=== PATIENT | female | born 1945 | race Caucasian/White ===

== ENCOUNTER 2020-09-20 15:08 | Inpatient (IN) | payer MEDICARE, OTHER, SELFPAY ==
[2020-09-20] VITALS (22 sets, daily range): BP systolic 140–207; BP diastolic 54–89; PULSE 68–79; RESP 16–20; TEMP 36.7–37.1; O2SAT 90–99; BMI 29.5
--- NOTE | 2020-09-20 15:24 | DI.RAD.S_ITS ---
PROCEDURE: XR KNEE RT 3V INDICATIONS: injury TECHNIQUE: Three views of the knee were acquired. COMPARISON: [facility], , XR KNEE 2V RT, 07/22/2005, 12:23. FINDINGS: Bones: Projecting skull changes are seen from a right total knee arthroplasty. There is mild cortical irregularity and angulation at the lateral aspect of the distal femoral metaphysis that is suspicious for a mildly angulated fracture. Mild valgus angulation is noted at the knee. Soft tissues: Fat-fluid levels are noted on lateral view, suspicious for a lipohemarthrosis. No suspicious soft tissue calcifications. IMPRESSION: 1. Suspected mildly angulated fracture at the lateral aspect of the distal femoral metaphysis. Findings may be further evaluated with CT if clinically indicated. 2. Moderate lipohemarthrosis. Dictated by: Long Guan M.D. on 09/20/2020 at 15:00 Approved by: Long Guan M.D. on 09/20/2020 at 15:04
--- NOTE | 2020-09-20 16:56 | DI.CT.S_ITS ---
PROCEDURE: CT LE RT WO CON INDICATIONS: Rt knee trauma. S/P knee surgery.Possible FX. TECHNIQUE: Noncontrast 1-1.5 mm axial sections acquired from the mid-patella to the proximal tibia, with coronal and sagittal reformats. COMPARISON: [facility], CR, XR KNEE RT 3V, 09/20/2020, 15:37. FINDINGS: Image quality: Excellent. Bones: Postsurgical changes are seen from right total knee arthroplasty with surrounding metallic streak artifact that mildly compromises evaluation of adjacent structures. An impacted and mildly the angulated fracture is seen at the lateral femoral metaphysis. There is up to 7 mm impaction at the lateral femoral metaphyseal cortex. The fracture is not seen exiting the medial femur. Mild valgus angulation is seen. The fractured extends to the level of the metallic lateral femoral condyle arthroplasty component. The right proximal tibia appears to be intact. The included fibula is intact. Soft tissues: A moderate joint effusion is seen with fat-fluid and fluid-fluid levels, compatible with a lipohemarthrosis. There is mild fatty infiltration of the musculature surrounding the knee. The ligaments and tendons are not well evaluated with CT. IMPRESSION: 1. Mildly impacted fracture at the lateral aspect of the distal femoral metaphysis with mild valgus angulation. 2. Status post right total knee arthroplasty. 3. Moderate lipohemarthrosis. Dictated by: Long Guan M.D. on 09/20/2020 at 16:30 Approved by: Long Guan M.D. on 09/20/2020 at 16:38
[2020-09-20] MEDS: ACETAMINOPHEN 325 MG TABLET 650 MG PO (17:50)
--- NOTE | 2020-09-20 18:19 | ED_ITS ---
HPI - Extremity Injury (Lower) <Raciel Lawler MD - Last Filed: 11/05/20 20:18> General Chief Complaint: Extremity Injury, Lower Stated Complaint: Fall Time Seen by Provider: 09/20/20 16:54 Source: patient and EMS Mode of arrival: EMS Limitations: no limitations History of Present Illness HPI Narrative: The patient tripped over a step at her house earlier, she fell onto her right knee. She has a past history of right DEIRDRE and a right TKA. He has significant pain in the right knee, she is unable stand. There is no open wound, no bleeding. She has no obvious deformity. She has no numbness to the right leg. She was too much to stand. She landed on the, there was no other trauma in the fall. She denies recent illness. Related Data Allergies Allergy/AdvReac Type Severity Reaction Status Date / Time No Known Drug Allergies Allergy Verified 09/22/20 08:25 Review of Systems <Raciel Lawler MD - Last Filed: 11/05/20 20:18> Constitutional Constitutional: Denies fever(s), Denies headache(s) and Denies weakness Comments: No recent illness ENT Ears, Nose, Mouth, and Throat: Denies headache(s) Comments: No complaints Cardiovascular Cardiovascular: Denies chest pain and Denies dyspnea Respiratory Respiratory: Denies cough and Denies dyspnea Gastrointestinal Gastrointestinal: Denies abdominal pain Musculoskeletal Musculoskeletal: Denies numbness Comments: Initially located to the right knee exclusively see HPI. Integumentary/Breasts Skin/Breast: Denies erythema, Denies rash and Denies wounds Neurologic Neurologic: Denies headache(s), Denies numbness and Denies weakness Patient History <Raciel Lawler MD - Last Filed: 11/05/20 20:18> Medical History Aortic stenosis Hypertension Rheumatoid arthritis Surgical History History of cholecystectomy History of foot surgery History of knee replacement History of right hip replacement History of transcatheter aortic valve replacement (TAVR) Family History Father No significant medical problems Mother Hypertension Diverticulosis Social History household members: spouse Smoking Status: Former smoker alcohol intake: current Smoking Status: Former smoker alcohol intake frequency: other Substance Use Type: does not use Exam <Raciel Lawler MD - Last Filed: 11/05/20 20:18> Initial Vital Signs Initial Vital Signs: Vital Signs Temperature 98.1 F 09/20/20 15:24 Pulse Rate 70 09/20/20 15:24 Respiratory Rate 16 09/20/20 15:24 Blood Pressure 171/74 H 09/20/20 15:24 Pulse Oximetry 98 09/20/20 15:24 Const General: cooperative and well developed Nutritional Appearance: well nourished HENMT Head: normocephalic and atraumatic Resp Auscultation: clear to auscultation bilaterally Cardio Rate: regular rate Rhythm: regular rhythm Heart Sounds: S1 normal Back/Spine/Pelvis Back: No back tenderness Skin General: no rashes or lesions noted Neuro General: patient alert and patient oriented x3 Speech: speech normal Motor: muscle tone normal throughout Sensory Exam: no sensory deficits noted Extrem Other: Right hip is nontender. The right knee is tender with edema, no abrasions, mild ecchymosis. She has limited range of motion due to pain. The right calf, ankle and foot are nontender. The right dorsalis pedis pulses normal. Psych Mental Status: mental status grossly normal <Shay Maurice DO - Last Filed: 09/20/20 22:17> Initial Vital Signs Initial Vital Signs: Vital Signs Temperature 98.1 F 09/20/20 15:24 Pulse Rate 70 09/20/20 15:24 Respiratory Rate 16 09/20/20 15:24 Blood Pressure 171/74 H 09/20/20 15:24 Pulse Oximetry 98 09/20/20 15:24 Procedures <Raciel Lawler MD - Last Filed: 11/05/20 20:18> Orthopedic Splinting/Casting Injury #1: Side: right Lower Extremity Injury Location: knee Lower Extremity Immobilizer: knee immobilizer Other Orthopedic Equipment: crutches Post splinting neuro exam: intact Post splinting vascular exam: intact Placed by: Nursing Course <Raciel Lawler MD - Last Filed: 11/05/20 20:18> Course Course Narrative: The patient has a right knee periprosthetic fracture. There is no significant displacement/malalignment. She is placed in a knee immobilizer. Orders Ordered: Discontinued Medications Acetaminophen (Acetaminophen 325 Mg Tablet) 650 mg PO NOW ONE Stop: 09/20/20 17:48 Last Admin: 09/20/20 17:50 Dose: 650 mg Documented by: NI Acetaminophen (Acetaminophen 325 Mg Tablet) 975 mg PO Q12H PRN PRN Reason: Pain, Mild (1-3) Acetaminophen (Acetaminophen 325 Mg Tablet) 975 mg PO Q6HR [facility] Last Admin: 09/21/20 23:35 Dose: 975 mg Documented by: Admin: 09/21/20 18:03 Dose: 975 mg Documented by: Admin: 09/21/20 13:07 Dose: 975 mg Documented by: BOBBY Acetaminophen (Acetaminophen 325 Mg Tablet) 975 mg PO Q8H [facility] Admin: 09/22/20 07:21 Dose: Not Given Documented by: Admin: 09/22/20 01:20 Dose: Not Given Documented by: JASEN Acetaminophen (Acetaminophen 325 Mg Tablet) 975 mg PO TID [facility] Last Admin: 09/24/20 08:39 Dose: 975 mg Documented by: Admin: 09/23/20 21:12 Dose: 975 mg Documented by: Admin: 09/23/20 14:32 Dose: 975 mg Documented by: Admin: 09/23/20 08:45 Dose: 975 mg Documented by: Admin: 09/22/20 20:53 Dose: 975 mg Documented by: Admin: 09/22/20 15:51 Dose: 975 mg Documented by: DEANNA Hydrocodone Bitart/Acetaminophen (Hydrocodone/Acet 5/325 Tablet) 1 tab PO Q4HR PRN PRN Reason: Pain, Mild (1-3) Aspirin (Aspirin Ec 81 Mg Tablet) 81 mg PO BID [facility] Last Admin: 09/24/20 08:38 Dose: 81 mg Documented by: Admin: 09/23/20 21:12 Dose: 81 mg Documented by: Admin: 09/23/20 08:45 Dose: 81 mg Documented by: Admin: 09/22/20 20:53 Dose: 81 mg Documented by: LAM Benzocaine (Benzocaine/Menthol 1 Ashley Pkt) 1 each PO PRN PRN PRN Reason: Sore Throat Bisacodyl (Bisacodyl 10 Mg Supp) 10 mg SD PRN PRN PRN Reason: Constipation Carvedilol (Carvedilol 12.5 Mg Tablet) 12.5 mg PO BIDWM [facility] Last Admin: 09/21/20 23:33 Dose: Not Given Documented by: Admin: 09/21/20 08:26 Dose: 12.5 mg Documented by: BOBBY Carvedilol (Carvedilol 12.5 Mg Tablet) 12.5 mg PO BID [facility] Last Admin: 09/23/20 03:59 Dose: Not Given Documented by: ROGELIO Carvedilol (Carvedilol 3.125 Mg Tablet) 6.25 mg PO BID [facility] Last Admin: 09/24/20 08:38 Dose: 6.25 mg Documented by: Admin: 09/23/20 21:12 Dose: 6.25 mg Documented by: Admin: 09/23/20 08:45 Dose: 6.25 mg Documented by: Admin: 09/22/20 20:54 Dose: 6.25 mg Documented by: LAM Docusate Sodium (Docusate 100 Mg Capsule) 100 mg PO BID [facility] Last Admin: 09/24/20 08:34 Dose: Not Given Documented by: Admin: 09/23/20 21:22 Dose: Not Given Documented by: Admin: 09/23/20 08:45 Dose: 100 mg Documented by: Admin: 09/22/20 20:57 Dose: Not Given Documented by: LAM Enoxaparin Sodium (Enoxaparin 40 Mg/0.4 Ml Syringe) 40 mg SUBCUT DAILY [facility] Last Admin: 09/23/20 03:59 Dose: Not Given Documented by: Admin: 09/21/20 08:27 Dose: 40 mg Documented by: BOBBY Fentanyl (Fentanyl 100 Mcg/2 Ml Inj) 0 mcg IV Q5M PRN PRN Reason: Pain, Moderate (4-6) Hydrochlorothiazide (Hydrochlorothiazide 25 Mg Tablet) 25 mg PO DAILY [facility] Sodium Chloride (Normal Saline 0.9%) 1,000 mls @ 100 mls/hr IV CONT [facility] Stop: 09/22/20 03:59 Last Admin: 09/21/20 18:04 Dose: 100 mls/hr Documented by: LAM Sodium Chloride (Normal Saline 0.9%) 1,000 mls @ 100 mls/hr IV CONT [facility] Last Admin: 09/22/20 04:27 Dose: 100 mls/hr Documented by: Admin: 09/21/20 22:36 Dose: Not Given Documented by: DEANNA Ceftriaxone Sodium/Dextrose (Rocephin) 1 gm in 50 mls @ 100 mls/hr IV Q24H [facility] Stop: 09/26/20 22:29 Last Infusion: 09/21/20 23:21 Dose: 100 mls/hr Documented by: Admin: 09/21/20 22:38 Dose: 100 mls/hr Documented by: DEANNA Potassium Chloride 40 meq/ (Sodium Chloride) 520 mls @ 130 mls/hr IV NOW ONE Stop: 09/22/20 10:54 Last Admin: 09/22/20 07:18 Dose: 130 mls/hr Documented by: VARINDER Cosigned by: BOBBY Magnesium Sulfate (Magnesium Sulfate) 2 gm in 50 mls @ 25 mls/hr IV NOW ONE Stop: 09/22/20 09:20 Last Admin: 09/23/20 03:58 Dose: Not Given Documented by: ROGELIO Lactated Ringer's (Lactated Ringers) 1,000 mls @ 42 mls/hr IV CONT [facility] Last Admin: 09/23/20 03:58 Dose: Not Given Documented by: ROGELIO Magnesium Sulfate (Magnesium Sulfate) 2 gm in 50 mls @ 25 mls/hr IV NOW ONE Stop: 09/22/20 14:14 Last Admin: 09/22/20 13:49 Dose: 25 mls/hr Documented by: BOBBY Cosigned by: SONIYA Ceftriaxone Sodium/Dextrose (Rocephin) 1 gm in 50 mls @ 100 mls/hr IV Q24H [facility] Stop: 09/24/20 17:59 Last Admin: 09/23/20 18:23 Dose: 100 mls/hr Documented by: Infusion: 09/22/20 19:58 Dose: 100 mls/hr Documented by: Admin: 09/22/20 17:34 Dose: 100 mls/hr Documented by: LAM Magnesium Hydroxide (Magnesium Hydroxide 30 Ml Udc) 30 ml PO BEDTIME [facility] Last Admin: 09/23/20 21:22 Dose: Not Given Documented by: Admin: 09/22/20 20:58 Dose: Not Given Documented by: LAM Morphine Sulfate (Morphine 4 Mg/Ml Inj) 4 mg SUBCUT NOW ONE Stop: 09/20/20 18:04 Last Admin: 09/20/20 18:21 Dose: 4 mg Documented by: NI Morphine Sulfate (Morphine 2 Mg/Ml Inj) 2 mg IV Q4HR PRN PRN Reason: Pain, Severe (7-10) Last Admin: 09/22/20 10:47 Dose: 2 mg Documented by: Admin: 09/22/20 05:07 Dose: 2 mg Documented by: Admin: 09/21/20 08:26 Dose: 2 mg Documented by: Admin: 09/21/20 03:40 Dose: 2 mg Documented by: JASEN Naloxone HCl (Naloxone 0.4 Mg/Ml Vial) 0.2 mg IV Q2MIN PRN PRN Reason: Opiate Reversal Naloxone HCl (Naloxone 0.4 Mg/Ml Vial) 0.2 mg IV Q2MIN PRN PRN Reason: Opiate Reversal Ondansetron HCl (Ondansetron 4 Mg/2 Ml Inj) 4 mg IV NOW PRN PRN Reason: Nausea And Vomiting Ondansetron HCl (Ondansetron 4 Mg Odt) 4 mg PO Q4HR PRN PRN Reason: Nausea And Vomiting Ondansetron HCl (Ondansetron 4 Mg/2 Ml Inj) 4 mg IV Q4HR PRN PRN Reason: Nausea And Vomiting Oxycodone HCl (Oxycodone Ir 5 Mg Tablet) 5 mg PO Q4HR PRN PRN Reason: Pain, Moderate (4-6) Oxycodone/Acetaminophen (Oxycodone/Acetaminophen 5/325 Tablet) 1 tab PO PACUNOW PRN PRN Reason: Mild or Moderate Pain Phenazopyridine HCl (Phenazopyridine 100 Mg Tablet) 100 mg PO TID [facility] Last Admin: 09/24/20 08:38 Dose: 100 mg Documented by: Admin: 09/23/20 21:12 Dose: 100 mg Documented by: Admin: 09/23/20 14:37 Dose: 100 mg Documented by: Admin: 09/23/20 08:46 Dose: 100 mg Documented by: Admin: 09/22/20 21:34 Dose: 100 mg Documented by: Admin: 09/22/20 17:34 Dose: 100 mg Documented by: LAM Polyethylene Glycol (Polyethylene Glycol 3350 17 Gm Powd.Pack) 17 gm PO DAILY [facility] Last Admin: 09/24/20 08:35 Dose: Not Given Documented by: Admin: 09/23/20 08:46 Dose: 17 gm Documented by: BOBBY Potassium Chloride (Potassium Chloride 20 Meq Tab) 40 meq PO NOW ONE Stop: 09/20/20 23:39 Last Admin: 09/21/20 00:01 Dose: 40 meq Documented by: JASEN Sodium Chloride (Sodium Chloride 0.9% Flush) 10 ml IV BID [facility] Last Admin: 09/23/20 03:59 Dose: Not Given Documented by: Admin: 09/21/20 21:51 Dose: Not Given Documented by: Admin: 09/21/20 10:08 Dose: 10 ml Documented by: BOBBY Sodium Chloride (Sodium Chloride 0.9% Flush) 10 ml IV PRN PRN PRN Reason: Flush Sodium Chloride (Sodium Chloride 0.9% Flush) 10 ml IV PRN PRN PRN Reason: Flush Last Admin: 09/23/20 18:24 Dose: 10 ml Documented by: Admin: 09/22/20 17:38 Dose: 10 ml Documented by: Admin: 09/22/20 16:35 Dose: 10 ml Documented by: LAM Sodium Chloride (Sodium Chloride 0.9% Flush) 10 ml IV BID [facility] Last Admin: 09/24/20 08:41 Dose: 10 ml Documented by: Admin: 09/23/20 21:26 Dose: 10 ml Documented by: Admin: 09/23/20 08:46 Dose: 10 ml Documented by: Admin: 09/22/20 21:35 Dose: 10 ml Documented by: DEANNA Telmisartan (Telmisartan 40 Mg Tablet) 80 mg PO DAILY [facility] Last Admin: 09/23/20 03:59 Dose: Not Given Documented by: Admin: 09/21/20 08:26 Dose: 80 mg Documented by: BOBBY Telmisartan (Telmisartan 40 Mg Tablet) 80 mg PO DAILY [facility] Last Admin: 09/24/20 08:38 Dose: 80 mg Documented by: Admin: 09/23/20 08:45 Dose: 80 mg Documented by: BOBBY Tramadol HCl (Tramadol 50 Mg Tablet) 50 mg PO Q6H PRN PRN Reason: Pain, Mild (1-3) Last Admin: 09/21/20 09:32 Dose: 50 mg Documented by: BOBBY Tramadol HCl (Tramadol 50 Mg Tablet) 50 mg PO QID PRN PRN Reason: Pain, Moderate (4-6) Tramadol HCl (Tramadol 50 Mg Tablet) 100 mg PO Q6H PRN PRN Reason: Pain, Moderate (4-6) Vital Signs Vital signs: Vital Signs - 8 hr 09/20/20 15:24 09/20/20 15:59 09/20/20 16:00 Temperature 98.1 F Pulse Rate 70 72 71 Respiratory Rate 16 18 Blood Pressure 171/74 H 175/75 H Pulse Oximetry 98 97 97 09/20/20 16:30 09/20/20 17:00 09/20/20 17:20 Temperature Pulse Rate 78 69 71 Respiratory Rate Blood Pressure 174/72 H Pulse Oximetry 94 98 95 09/20/20 17:30 09/20/20 18:00 09/20/20 18:01 Temperature Pulse Rate 69 68 69 Respiratory Rate Blood Pressure 156/71 H 159/67 H Pulse Oximetry 98 99 99 09/20/20 18:30 09/20/20 18:47 09/20/20 18:51 Temperature Pulse Rate 74 79 73 Respiratory Rate 16 Blood Pressure 175/89 H 207/79 H Pulse Oximetry 97 92 98 09/20/20 18:52 Temperature Pulse Rate 74 Respiratory Rate Blood Pressure 188/77 H Pulse Oximetry 98 <Shay Maurice DO - Last Filed: 09/20/20 22:17> Orders Ordered: Discontinued Medications Acetaminophen (Acetaminophen 325 Mg Tablet) 650 mg PO NOW ONE Stop: 09/20/20 17:48 Last Admin: 09/20/20 17:50 Dose: 650 mg Documented by: NI Acetaminophen (Acetaminophen 325 Mg Tablet) 975 mg PO Q12H PRN PRN Reason: Pain, Mild (1-3) Acetaminophen (Acetaminophen 325 Mg Tablet) 975 mg PO Q6HR [facility] Last Admin: 09/21/20 23:35 Dose: 975 mg Documented by: Admin: 09/21/20 18:03 Dose: 975 mg Documented by: Admin: 09/21/20 13:07 Dose: 975 mg Documented by: BOBBY Acetaminophen (Acetaminophen 325 Mg Tablet) 975 mg PO Q8H [facility] Last Admin: 09/22/20 07:21 Dose: Not Given Documented by: Admin: 09/22/20 01:20 Dose: Not Given Documented by: JASEN Acetaminophen (Acetaminophen 325 Mg Tablet) 975 mg PO TID [facility] Last Admin: 09/24/20 08:39 Dose: 975 mg Documented by: Admin: 09/23/20 21:12 Dose: 975 mg Documented by: Admin: 09/23/20 14:32 Dose: 975 mg Documented by: Admin: 09/23/20 08:45 Dose: 975 mg Documented by: Admin: 09/22/20 20:53 Dose: 975 mg Documented by: Admin: 09/22/20 15:51 Dose: 975 mg Documented by: DEANNA Hydrocodone Bitart/Acetaminophen (Hydrocodone/Acet 5/325 Tablet) 1 tab PO Q4HR PRN PRN Reason: Pain, Mild (1-3) Aspirin (Aspirin Ec 81 Mg Tablet) 81 mg PO BID [facility] Last Admin: 09/24/20 08:38 Dose: 81 mg Documented by: Admin: 09/23/20 21:12 Dose: 81 mg Documented by: Admin: 09/23/20 08:45 Dose: 81 mg Documented by: Admin: 09/22/20 20:53 Dose: 81 mg Documented by: LAM Benzocaine (Benzocaine/Menthol 1 Ashley Pkt) 1 each PO PRN PRN PRN Reason: Sore Throat Bisacodyl (Bisacodyl 10 Mg Supp) 10 mg SD PRN PRN PRN Reason: Constipation Carvedilol (Carvedilol 12.5 Mg Tablet) 12.5 mg PO BIDWM [facility] Last Admin: 09/21/20 23:33 Dose: Not Given Documented by: Admin: 09/21/20 08:26 Dose: 12.5 mg Documented by: BOBBY Carvedilol (Carvedilol 12.5 Mg Tablet) 12.5 mg PO BID [facility] Last Admin: 09/23/20 03:59 Dose: Not Given Documented by: ROGELIO Carvedilol (Carvedilol 3.125 Mg Tablet) 6.25 mg PO BID [facility] Last Admin: 09/24/20 08:38 Dose: 6.25 mg Documented by: Admin: 09/23/20 21:12 Dose: 6.25 mg Documented by: Admin: 09/23/20 08:45 Dose: 6.25 mg Documented by: Admin: 09/22/20 20:54 Dose: 6.25 mg Documented by: LAM Docusate Sodium (Docusate 100 Mg Capsule) 100 mg PO BID [facility] Last Admin: 09/24/20 08:34 Dose: Not Given Documented by: Admin: 09/23/20 21:22 Dose: Not Given Documented by: Admin: 09/23/20 08:45 Dose: 100 mg Documented by: Admin: 09/22/20 20:57 Dose: Not Given Documented by: LAM Enoxaparin Sodium (Enoxaparin 40 Mg/0.4 Ml Syringe) 40 mg SUBCUT DAILY [facility] Last Admin: 09/23/20 03:59 Dose: Not Given Documented by: Admin: 09/21/20 08:27 Dose: 40 mg Documented by: BOBBY Fentanyl (Fentanyl 100 Mcg/2 Ml Inj) 0 mcg IV Q5M PRN PRN Reason: Pain, Moderate (4-6) Hydrochlorothiazide (Hydrochlorothiazide 25 Mg Tablet) 25 mg PO DAILY [facility] Sodium Chloride (Normal Saline 0.9%) 1,000 mls @ 100 mls/hr IV CONT [facility] Stop: 09/22/20 03:59 Last Admin: 09/21/20 18:04 Dose: 100 mls/hr Documented by: LAM Sodium Chloride (Normal Saline 0.9%) 1,000 mls @ 100 mls/hr IV CONT [facility] Last Admin: 09/22/20 04:27 Dose: 100 mls/hr Documented by: Admin: 09/21/20 22:36 Dose: Not Given Documented by: DEANNA Ceftriaxone Sodium/Dextrose (Rocephin) 1 gm in 50 mls @ 100 mls/hr IV Q24H [facility] Stop: 09/26/20 22:29 Last Infusion: 09/21/20 23:21 Dose: 100 mls/hr Documented by: Admin: 09/21/20 22:38 Dose: 100 mls/hr Documented by: DEANNA Potassium Chloride 40 meq/ (Sodium Chloride) 520 mls @ 130 mls/hr IV NOW ONE Stop: 09/22/20 10:54 Last Admin: 09/22/20 07:18 Dose: 130 mls/hr Documented by: VARINDER Cosigned by: BOBBY Magnesium Sulfate (Magnesium Sulfate) 2 gm in 50 mls @ 25 mls/hr IV NOW ONE Stop: 09/22/20 09:20 Last Admin: 09/23/20 03:58 Dose: Not Given Documented by: ROGELIO Lactated Ringer's (Lactated Ringers) 1,000 mls @ 42 mls/hr IV CONT [facility] Last Admin: 09/23/20 03:58 Dose: Not Given Documented by: ROGELIO Magnesium Sulfate (Magnesium Sulfate) 2 gm in 50 mls @ 25 mls/hr IV NOW ONE Stop: 09/22/20 14:14 Last Admin: 09/22/20 13:49 Dose: 25 mls/hr Documented by: BOBBY Cosigned by: SONIYA Ceftriaxone Sodium/Dextrose (Rocephin) 1 gm in 50 mls @ 100 mls/hr IV Q24H [facility] Stop: 09/24/20 17:59 Last Admin: 09/23/20 18:23 Dose: 100 mls/hr Documented by: Infusion: 09/22/20 19:58 Dose: 100 mls/hr Documented by: Admin: 09/22/20 17:34 Dose: 100 mls/hr Documented by: LAM Magnesium Hydroxide (Magnesium Hydroxide 30 Ml Udc) 30 ml PO BEDTIME [facility] Last Admin: 09/23/20 21:22 Dose: Not Given Documented by: Admin: 09/22/20 20:58 Dose: Not Given Documented by: LAM Morphine Sulfate (Morphine 4 Mg/Ml Inj) 4 mg SUBCUT NOW ONE Stop: 09/20/20 18:04 Last Admin: 09/20/20 18:21 Dose: 4 mg Documented by: NI Morphine Sulfate (Morphine 2 Mg/Ml Inj) 2 mg IV Q4HR PRN PRN Reason: Pain, Severe (7-10) Last Admin: 09/22/20 10:47 Dose: 2 mg Documented by: Admin: 09/22/20 05:07 Dose: 2 mg Documented by: Admin: 09/21/20 08:26 Dose: 2 mg Documented by: Admin: 09/21/20 03:40 Dose: 2 mg Documented by: JASEN Naloxone HCl (Naloxone 0.4 Mg/Ml Vial) 0.2 mg IV Q2MIN PRN PRN Reason: Opiate Reversal Naloxone HCl (Naloxone 0.4 Mg/Ml Vial) 0.2 mg IV Q2MIN PRN PRN Reason: Opiate Reversal Ondansetron HCl (Ondansetron 4 Mg/2 Ml Inj) 4 mg IV NOW PRN PRN Reason: Nausea And Vomiting Ondansetron HCl (Ondansetron 4 Mg Odt) 4 mg PO Q4HR PRN PRN Reason: Nausea And Vomiting Ondansetron HCl (Ondansetron 4 Mg/2 Ml Inj) 4 mg IV Q4HR PRN PRN Reason: Nausea And Vomiting Oxycodone HCl (Oxycodone Ir 5 Mg Tablet) 5 mg PO Q4HR PRN PRN Reason: Pain, Moderate (4-6) Oxycodone/Acetaminophen (Oxycodone/Acetaminophen 5/325 Tablet) 1 tab PO PACUNOW PRN PRN Reason: Mild or Moderate Pain Phenazopyridine HCl (Phenazopyridine 100 Mg Tablet) 100 mg PO TID [facility] Last Admin: 09/24/20 08:38 Dose: 100 mg Documented by: Admin: 09/23/20 21:12 Dose: 100 mg Documented by: Admin: 09/23/20 14:37 Dose: 100 mg Documented by: Admin: 09/23/20 08:46 Dose: 100 mg Documented by: Admin: 09/22/20 21:34 Dose: 100 mg Documented by: Admin: 09/22/20 17:34 Dose: 100 mg Documented by: LAM Polyethylene Glycol (Polyethylene Glycol 3350 17 Gm Powd.Pack) 17 gm PO DAILY [facility] Last Admin: 09/24/20 08:35 Dose: Not Given Documented by: Admin: 09/23/20 08:46 Dose: 17 gm Documented by: BOBBY Potassium Chloride (Potassium Chloride 20 Meq Tab) 40 meq PO NOW ONE Stop: 09/20/20 23:39 Last Admin: 09/21/20 00:01 Dose: 40 meq Documented by: JASEN Sodium Chloride (Sodium Chloride 0.9% Flush) 10 ml IV BID [facility] Last Admin: 09/23/20 03:59 Dose: Not Given Documented by: Admin: 09/21/20 21:51 Dose: Not Given Documented by: Admin: 09/21/20 10:08 Dose: 10 ml Documented by: BOBBY Sodium Chloride (Sodium Chloride 0.9% Flush) 10 ml IV PRN PRN PRN Reason: Flush Sodium Chloride (Sodium Chloride 0.9% Flush) 10 ml IV PRN PRN PRN Reason: Flush Last Admin: 09/23/20 18:24 Dose: 10 ml Documented by: Admin: 09/22/20 17:38 Dose: 10 ml Documented by: Admin: 09/22/20 16:35 Dose: 10 ml Documented by: LAM Sodium Chloride (Sodium Chloride 0.9% Flush) 10 ml IV BID [facility] Last Admin: 09/24/20 08:41 Dose: 10 ml Documented by: Admin: 09/23/20 21:26 Dose: 10 ml Documented by: Admin: 09/23/20 08:46 Dose: 10 ml Documented by: Admin: 09/22/20 21:35 Dose: 10 ml Documented by: DEANNA Telmisartan (Telmisartan 40 Mg Tablet) 80 mg PO DAILY [facility] Last Admin: 09/23/20 03:59 Dose: Not Given Documented by: Admin: 09/21/20 08:26 Dose: 80 mg Documented by: BOBBY Telmisartan (Telmisartan 40 Mg Tablet) 80 mg PO DAILY [facility] Last Admin: 09/24/20 08:38 Dose: 80 mg Documented by: Admin: 09/23/20 08:45 Dose: 80 mg Documented by: BOBBY Tramadol HCl (Tramadol 50 Mg Tablet) 50 mg PO Q6H PRN PRN Reason: Pain, Mild (1-3) Last Admin: 09/21/20 09:32 Dose: 50 mg Documented by: BOBBY Tramadol HCl (Tramadol 50 Mg Tablet) 50 mg PO QID PRN PRN Reason: Pain, Moderate (4-6) Tramadol HCl (Tramadol 50 Mg Tablet) 100 mg PO Q6H PRN PRN Reason: Pain, Moderate (4-6) Vital Signs Vital signs: Vital Signs - 8 hr 09/20/20 15:24 09/20/20 15:59 09/20/20 16:00 Temperature 98.1 F Pulse Rate 70 72 71 Respiratory Rate 16 18 Blood Pressure 171/74 H 175/75 H Pulse Oximetry 98 97 97 09/20/20 16:30 09/20/20 17:00 09/20/20 17:20 Temperature Pulse Rate 78 69 71 Respiratory Rate Blood Pressure 174/72 H Pulse Oximetry 94 98 95 09/20/20 17:30 09/20/20 18:00 09/20/20 18:01 Temperature Pulse Rate 69 68 69 Respiratory Rate Blood Pressure 156/71 H 159/67 H Pulse Oximetry 98 99 99 09/20/20 18:30 09/20/20 18:47 09/20/20 18:51 Temperature Pulse Rate 74 79 73 Respiratory Rate 16 Blood Pressure 175/89 H 207/79 H Pulse Oximetry 97 92 98 09/20/20 18:52 Temperature Pulse Rate 74 Respiratory Rate Blood Pressure 188/77 H Pulse Oximetry 98 MDM - Extremity Injury (Lower) <Raciel Lawler MD - Last Filed: 11/05/20 20:18> Lab Data Result diagrams: 09/23/20 05:45 09/24/20 05:35 Imaging Data Right knee x-ray: Radiologist's Impression: Periprosthetic fracture. Right knee CT:: Radiologist's Impression: 218 Raciel Lawler MD Find Patient Imaging - Tessa Segal 75 F 1945 ACTIVITY DATE EXAM STATUS AUTHOR 09/20/20 16:56 Signed Long Guan 09/20/20 15:24 Signed Long Guan [address] [id number] Scan ReportSigned Patient: Tessa Segal JMR#: [id number]: 1945cct:[id number]/Sex: 75 / FDate of Service: 09/20/20Loc: EDAccession Number: [id number] Procedure: CT LE RT wo con Ordering Provider: Raciel Lawler MD PROCEDURE: CT LE RT WO CON INDICATIONS: Rt knee trauma. S/P knee surgery.Possible FX. TECHNIQUE: Noncontrast 1-1.5 mm axial sections acquired from the mid-patella to the proximal tibia, with coronal and sagittal reformats. COMPARISON: [facility], CR, XR KNEE RT 3V, 09/20/2020, 15:37. FINDINGS: Image quality: Excellent. Bones: Postsurgical changes are seen from right total knee arthroplasty with surrounding metallic streak artifact that mildly compromises evaluation of adjacent structures. An impacted and mildly the angulated fracture is seen at the lateral femoral metaphysis. There is up to 7 mm impaction at the lateral femoral metaphyseal cortex. The fracture is not seen exiting the medial femur. Mild valgus angulation is seen. The fractured extends to the level of the metallic lateral femoral condyle arthroplasty component. The right proximal tibia appears to be intact. The included fibula is intact. Soft tissues: A moderate joint effusion is seen with fat-fluid and fluid-fluid levels, compatible with a lipohemarthrosis. There is mild fatty infiltration of the musculature surrounding the knee. The ligaments and tendons are not well evaluated with CT. IMPRESSION: 1. Mildly impacted fracture at the lateral aspect of the distal femoral metaphysis with mild valgus angulation. 2. Status post right total knee arthroplasty. 3. Moderate lipohemarthrosis. Dictated by: Long Guan M.D. on 09/20/2020 at 16:30 Approved by: Long Guan M.D. on 09/20/2020 at 16:38 <Shay Maurice DO - Last Filed: 09/20/20 22:17> [facility] Narrative Medical decision making narrative: Dr maurice: Received turned over from day provider. Reviewed patient's history and physical. Her knee x-ray his under a another 1st name but has the same last name. Her CT scan of her knees under her correct 1st name. This will be adjusted by Radiology administration tomorrow. I did discuss the case with Dr. Rod on-call for Orthopedics who recommended placing the placement in a splint making her nonweightbearing every in her call the office for follow-up. Initially be attempted a knee immobilizer however this was unsuccessful secondary to the patient's discomfort was straightening her knee. We then placed her in a posterior splint however she was unable to stand using the crutches have bedside. She does have other issues with arthritis. Patient is unsafe to be discharged home. We do not have a wheelchair that she can be discharged with. She does have stairs in her home. She is unable to use a walker. Discussed the case with DAXA Wallace the night hospitalist who will admit for physical therapy and social work evaluation. Discharge Plan Departure Patient Disposition: Admitted as Observation Clinical Impression: Closed fracture of right knee region Admit Date/Time: 09/20/20 22:05 Admit Provider: Vargas Wallace
[2020-09-20] MEDS: MORPHINE 4 MG/ML INJ SUBCUT (18:21)
[2020-09-20 22:40] LABS: BUN Creatinine Ratio 18.8 (6-22); Blood Urea Nitrogen 15 mg/dL (7-17); Calcium 9.1 mg/dL (8.4-10.2); Carbon Dioxide 33 mmol/L (22-32); Chloride 101 mmol/L (98-107); Estimated Glomerular Filt Rate > 60.0 mL/min (>60); Glucose 117 mg/dL (80-110); HEMOLYSIS < 15 (0-50); Potassium 3.3 mmol/L (3.4-5.1); Sodium 133 mmol/L (137-145)
--- NOTE | 2020-09-20 22:48 | PC.NURSE ---
Tried to assist pt to stand and ambulate with crutches. pt was able to get to side of bed, but was not able to stand and ambulate with crutches.
--- NOTE | 2020-09-20 22:51 | PM.HP.1 ---
History of Present Illness History of Present Illness Date Patient Seen: 09/20/20 Time Patient Seen: 22:34 Chief complaint: Fall Narrative: Ms. Tessa Segal is a 75-year-old female with a past medical history significant for hypertension, aortic stenosis status post TAVR and rheumatoid arthritis who presents to the ER via EMS following a mechanical ground level fall and knee pain. Patient reports tripping on a step and landing on her right knee. She was nonambulatory following the fall and sustained no loss consciousness, no head neck or back injury. Patient has had previous bilateral total knee arthroplasty and right total hip arthroplasty. She reports impaired joint mobility in her hands and ankles related to advanced rheumatoid arthritis. The patient denies recent cold or flu symptoms and has had no known COVID-19 exposures. She denies chest pain or palpitations, shortness of breath cough or wheezing. She denies epigastric or abdominal pain and has no nausea or vomiting. She denies changes in bowel or bladder habits. Upon arrival to the ER the patient's temperature 98.1?, heart rate of 70, blood pressure 171/74, respirations 16 saturating 98% on room air. X-ray of the right knee finds suspected mildly angulated fracture at the lateral aspect of the distal femoral metaphysis, moderate lipohemarthrosis. CT of the right knee reveals mildly impacted fracture at the lateral aspect of the distal femoral metaphysis with mild valgus angulation, status post right total knee arthroplasty and moderate lipohemarthrosis. Dr. Rod, orthopedics, was called through the ED. Was felt though that this is a periprosthetic fracture emergent surgery is not indicated and recommended outpatient follow-up. The patient was found to be unable to support her weight on either crutches or a walker due to her advanced rheumatoid arthritis and nonweightbearing status. Her home environment includes steps at the entry in the patient is deemed unsafe to discharge to home environment due to her level of disability. The patient will be admitted as to the medicine service for periprosthetic fracture of the right knee, pain management and PT and OT evaluation. BMP is ordered finding a sodium of 133, potassium of 3.3, carbon dioxide 33 with a BUN of 15 and creatinine 0.80. Nonfasting glucose is 117. Patient History Medical History Aortic stenosis Hypertension Rheumatoid arthritis Surgical History History of cholecystectomy History of foot surgery History of knee replacement History of right hip replacement History of transcatheter aortic valve replacement (TAVR) Family & Social History Family History Father No significant medical problems Mother Hypertension Diverticulosis Safety & Behavioral: Feels Safe in Current Yes Environment Been Physically Hurt or No Threatened By a Person Tobacco & Substance use: Smoking Status Former smoker alcohol intake frequency other Substance Use Type does not use Meds Home Medications and Allergies Home Medications Medication Instructions Recorded Confirmed Type carvedilol [Coreg] 12.5 mg PO BID 09/20/20 09/20/20 History telmisartan-hydrochlorothiazid 1 tab PO DAILY 09/20/20 09/20/20 History [Micardis HCT] tramadol 50 mg PO Q6H PRN #20 tab 09/20/20 Rx Allergies Allergy/AdvReac Type Severity Reaction Status Date / Time No Known Drug Allergies Allergy Verified 09/20/20 15:32 Review of Systems Review of Systems ROS: Yes All systems reviewed with the patient and are negative except as otherwise documented Exam Vital Signs (past 8 hours): - 09/20/20 15:24 09/20/20 15:59 09/20/20 16:00 Temperature 98.1 F Pulse Rate 70 72 71 Respiratory Rate 16 18 Blood Pressure 171/74 H 175/75 H Pulse Oximetry 98 97 97 09/20/20 16:30 09/20/20 17:00 09/20/20 17:20 Temperature Pulse Rate 78 69 71 Respiratory Rate Blood Pressure 174/72 H Pulse Oximetry 94 98 95 09/20/20 17:30 09/20/20 18:00 09/20/20 18:01 Temperature Pulse Rate 69 68 69 Respiratory Rate Blood Pressure 156/71 H 159/67 H Pulse Oximetry 98 99 99 09/20/20 18:30 09/20/20 18:47 09/20/20 18:51 Temperature Pulse Rate 74 79 73 Respiratory Rate 16 Blood Pressure 175/89 H 207/79 H Pulse Oximetry 97 92 98 09/20/20 18:52 09/20/20 19:00 09/20/20 19:30 Temperature Pulse Rate 74 71 70 Respiratory Rate Blood Pressure 188/77 H Pulse Oximetry 98 97 95 12/03/20 20:00 09/20/20 20:30 09/20/20 21:00 Temperature Pulse Rate 71 74 73 Respiratory Rate Blood Pressure Pulse Oximetry 96 95 94 09/20/20 21:30 09/20/20 21:43 09/20/20 22:45 Temperature Pulse Rate 79 72 Respiratory Rate Blood Pressure 177/80 H Pulse Oximetry 92 92 Oxygen Delivery Method Room Air Narrative Exam Narrative: GENERAL APPEARANCE: well developed, well nourished, in no acute distress. HEENT: Atraumatic, PERRLA, conjunctiva clear, EOMs intact without nystagmus, no sinus tenderness to percussion, no rhinorrhea, mucous membranes are moist and pink without lesions or exudate. NECK/THYROID: Neck nontender, no step-offs, no palpable muscle spasms, no JVD, no thyromegaly, trachea midline. LYMPH NODES: no cervical or supraclavicular lymphadenopathy. SKIN: Ronald, warm and dry, no visible lesions, rashes, ulcerations or petechiae. HEART: regular rate and rhythm, S1-S2, holosystolic rumbling murmur, no rubs or gallops, brisk capillary refill, no edema LUNGS: clear to auscultation bilaterally, no coarseness crackles or wheezing, no cough present CHEST: Symmetrical movement, no accessory muscle use, good tidal volume. ABDOMEN: Soft, no distention, no abdominal tenderness, no guarding or peritoneal signs, no organomegaly, no flank or suprapubic tenderness, active bowel tones. BACK: Normal curvature, nontender to palpation, no CVA tenderness on percussion EXTREMITIES: Effusion right knee, Posterior splint of right leg with Finn wraps, intact distal CMS, severe joint deformity bilateral hands, severely impaired movement ankles, feet and toes. NEUROLOGIC: AAO x 3, no focal neurologic deficits, cranial nerves II-XII grossly intact, sensation intact to light touch, hearing grossly normal to speech. PSYCH: Good eye contact, linear thought, cooperative with stable behavior Objective Labs Result Diagrams: 09/20/20 22:19 09/20/20 22:19 Labs: Laboratory Results - last 24 hr 09/20/20 22:19 Sodium 133 L Potassium 3.3 L Chloride 101 Carbon Dioxide 33 H BUN 15 Creatinine 0.80 Estimated GFR > 60.0 BUN/Creatinine Ratio 18.8 Glucose 117 H Calcium 9.1 Assessment & Plan Assessment & Plan narrative: This is a 75-year-old female patient with past medical history significant for hypertension, aortic stenosis status post TAVR in advanced rheumatoid arthritis with history of bilateral total knee arthroplasty and right total hip arthroplasty who sustained a ground level mechanical fall resulting in a periprosthetic right distal femur fracture. 1. Closed fracture of lateral distal femoral metaphysis, status post right total knee arthroplasty, acute, present on admission, active. -patient sustained a periprosthetic distal femur fracture and is nonambulatory and nonweightbearing per Orthopedics. -Dr. Anderson orthopedics has been consulted through the emergency department and felt this injury to not require emergent surgery and can be treated on an outpatient basis. -the patient is nonambulatory and unable to use of walker or crutches secondary to her advanced rheumatoid arthritis and joint deformities. -inpatient consult by Dr. Rod is requested, we appreciate is further evaluation recommendations. -ordered Tylenol 975 mg p.o. twice daily. -ordered tramadol 50 mg p.o. every 6 hours as needed for moderate pain. -ordered morphine sulfate 2 mg IV every 4 hours as needed for breakthrough pain. -requested PT and OT consult to evaluate and treat. 2. Rheumatoid arthritis, chronic, stable -patient with joint deformities bilateral hands with decreased range of motion of wrists ankles and feet. -she is status post bilateral total knee arthroplasty, right total hip arthroplasty and previous wrist injury -the patient does not routinely use assistive devices at home. -patient is presently nonweightbearing on the right leg related to periprosthetic fracture distal femur noted at problem 1 above and is unable to use crutches or a walker. -requested PT and OT to consult, evaluate and treat. 3. Hypertension, chronic, stable -patient with elevated blood pressure 171/74 upon arrival to the ER likely elevated secondary to pain rated as an 8/10 upon arrival, improved to 140/54 upon admission to the inpatient unit. -patient takes telmisartan 80 mg/hydrochlorothiazide 25 mg daily. Ordered telmisartan 80 mg daily will hold hydrochlorothiazide due to hyponatremia and hypokalemia. -will trend blood pressures. 4. Hypokalemia, acute, present on admission, active. -patient is on diuretic therapy with hydrochlorothiazide 25 mg. Potassium is 3.3 on admission labs. -ordered potassium 40 mEq by mouth now. -will recheck electrolytes in the morning. 5. Hyponatremia, unknown if acute or chronic, present on admission, stable -sodium level on admission labs is 133. Patient presents with clear mentation. -patient is mildly dehydrated in appearance with dry mucous membranes, BUN creatinine ratio is 18.8. -patient has been on telmisartan/hydrochlorothiazide. Will treat conservatively and hold hydrochlorothiazide and encourage p.o. fluids. 6. Aortic stenosis, status post TAVR, chronic, stable -breath sounds are clear no complaints of chest pain or dyspnea. -last echo September 2017 demonstrates an EF of 60-65% prior to TAVR procedure. -patient routinely follows with cardiology, stable condition. VTE prophylaxis: Enoxaparin IV fluid: Saline lock Diet: Heart healthy Code status: Full code, the patient designates her to be surrogate decision maker. The patient is admitted to the hospital with periprosthetic right distal femur fracture and inability to return safely to home environment related to being unable to use a walker or crutches as results of her debility from rheumatoid arthritis. The patient is admitted as observation with expected length of stay to be less than 2 midnights. COVID-19 COVID-19 status: Negative Result date/Date tested (Pos, Neg/Pending): 09/20/20 Scores GCS Cj coma scale eye opening: Spontaneous [place] coma scale verbal response: Orientated [place] coma scale motor response: Obey commands [place] coma scale total score: 15
[2020-09-20 22:56] LABS: COVID19 -Nasal RAPID Negative (Negative)
[2020-09-21] VITALS (14 sets, daily range): BP systolic 85–148; BP diastolic 40–63; PULSE 62–75; RESP 13–18; TEMP 36.1–37.2; O2SAT 91–97
[2020-09-21] MEDS: POTASSIUM CHLORIDE 20 MEQ TAB 40 MEQ PO (00:01)
--- NOTE | 2020-09-21 00:47 | RT ---
Placed pt on hospital CPAP machine @ 0039. Pt has home CPAP unit, but left it at home. Pt's SpO2 94% on Room Air. Pending MD order for CPAP use while in hospital.
--- NOTE | 2020-09-21 00:59 | PC.NURSE ---
Admitted to room 207 from ER diagnosed closed fracture right knee R/T recent fall at home. Fall precaution bed alarm activated, call light with in reached & instructed not to get OOB at this time. Uses CPAP at home, did not bring her own CPAP. RT. did provided her with hospital CPAP. Pain level on admit was 5/10 with movement, RLE was splinted & wrapped with deb wrap dressing. Noted RLE with 2+ non pitting edema & elevated with pillow, Will continue POC & monitor.
[2020-09-21] MEDS: MORPHINE 2 MG/ML INJ IV ×2 (03:40→08:26)
--- NOTE | 2020-09-21 03:46 | PC.NURSE ---
Pain level was @ 10/10 after we moved her around to used the bed [place]. Medicated with 2 mg. of Morphine IVP slowly over 2 mins. Will monitor.
[2020-09-21 05:56] LABS: Add Manual Diff / Slide Review NO; Basophils Absolute Auto 100 /uL (0-100); Basophils Percent Auto 0.9 % (0-2); Eosinophils Absolute Auto 100 /uL (0-450); Eosinophils Percent Auto 1.1 % (2-4); Lymphocytes Absolute Auto 900 /uL (1100-4500); Lymphocytes Percent Auto 15.7 % (25-40); Mean Corpuscular HGB Conc 33.2 % (30-36); Mean Corpuscular Hemoglobin 29.2 PG (26-34); Mean Corpuscular Volume 87.9 fL (80-100); Monocytes Absolute Auto 700 /uL (0-900); Monocytes Percent Auto 11.8 % (3-14); Neutrophils Absolute Auto 4300 /uL (1500-7000); Neutrophils Percent Auto 70.5 % (50-75); Platelet Count 94 X10^3/uL (150-400); Red Blood Cell Count 3.76 X10^6/uL (4.0-5.2); Red Cell Distribution Width 13.9 % (11.6-14.8)
[2020-09-21 06:24] LABS: BUN Creatinine Ratio 18.7 (6-22); Blood Urea Nitrogen 14 mg/dL (7-17); Carbon Dioxide 30 mmol/L (22-32); Chloride 102 mmol/L (98-107); Estimated Glomerular Filt Rate > 60.0 mL/min (>60); Glucose 110 mg/dL (80-110); HEMOLYSIS < 15 (0-50); Potassium 3.7 mmol/L (3.4-5.1); Sodium 133 mmol/L (137-145)
--- NOTE | 2020-09-21 08:22 | DI.RAD.S_ITS ---
PROCEDURE: XR KNEE RT 3V INDICATIONS: fracture TECHNIQUE: 3 views of the knee were acquired. COMPARISON: [facility], CT, CT LE RT WO CON, 09/20/2020, 17:01. [facility], CR, XR KNEE RT 3V, 09/20/2020, 15:37. FINDINGS: Bones: Grossly unchanged alignment of distal lateral femoral impacted fracture. Expected postoperative alignment of right knee arthroplasty hardware. The hardware appears intact. Soft tissues: Small joint effusion. IMPRESSION: Unchanged alignment of distal femur fracture. Dictated by: Earnest Sanchez M.D. on 09/21/2020 at 9:47 Approved by: Earnest Sanchez M.D. on 09/21/2020 at 9:49
[2020-09-21] MEDS: carvediloL 12.5 MG TABLET PO (08:26)
[2020-09-21] MEDS: TELMISARTAN 40 MG TABLET 80 MG PO (08:26)
[2020-09-21] MEDS: ENOXAPARIN 40 MG/0.4 ML SYRINGE SUBCUT (08:27)
--- NOTE | 2020-09-21 09:11 | PM.PN.1 ---
Subjective Subjective Date Patient Seen: 09/21/20 Time Patient Seen: 09:11 Interval history: Ms. Tessa Segal is a 75-year-old female with a past medical history significant for hypertension, aortic stenosis status post TAVR and rheumatoid arthritis who presents to the ER via EMS following a mechanical ground level fall and knee pain. Patient reports tripping on a step and landing on her right knee. Patient has had previous bilateral total knee arthroplasty and right total hip arthroplasty. She reports impaired joint mobility in her hands and ankles related to advanced rheumatoid arthritis. CT of the right knee reveals mildly impacted fracture at the lateral aspect of the distal femoral metaphysis with mild valgus angulation, status post right total knee arthroplasty and moderate lipohemarthrosis. The patient thus far has been unable to support her weight on either crutches or a walker due to her advanced rheumatoid arthritis and nonweightbearing status. Dr. Lopez was contacted this morning and will do a formal consult today. Exam Vital Signs (past 8 hours): - 09/21/20 03:35 09/21/20 03:50 09/21/20 07:10 Temperature 98.3 F 97.3 F L Pulse Rate 75 69 Respiratory Rate 14 16 Blood Pressure 148/63 H 128/55 L Pulse Oximetry 96 97 96 09/21/20 08:26 Temperature Pulse Rate 67 Respiratory Rate Blood Pressure 128/55 L Pulse Oximetry Fraction of Inspired Oxygen 21 Oxygen Delivery Method Room Air,CPAP Oxygen Flow Rate 0 Narrative Exam Narrative: Patient lying in bed in NAD. Her leg is splinted and wrapped in gauze and deb wrap. Effusion notable of the knee. Patient left in splint as PT will be coming later to place in knee immobilizer. She has severe joint deformity bilateral hands, severely impaired movement ankles, feet and toes. SCDs on and functioning. Objective Labs Result Diagrams: 09/21/20 05:40 09/21/20 05:40 Labs: Laboratory Results - last 24 hr 09/20/20 09/20/20 09/21/20 22:19 22:40 05:40 WBC 6.0 RBC 3.76 L Hgb 11.0 L Hct 33.0 L MCV 87.9 MCH 29.2 MCHC 33.2 RDW 13.9 Plt Count 94 L Neut % (Auto) 70.5 Lymph % (Auto) 15.7 L [place] % (Auto) 11.8 Eos % (Auto) 1.1 L Baso % (Auto) 0.9 Neut # (Auto) 4300 Lymph # (Auto) 900 L [place] # (Auto) 700 Eos # (Auto) 100 Baso # (Auto) 100 Sodium 133 L Potassium 3.3 L Chloride 101 Carbon Dioxide 33 H BUN 15 Creatinine 0.80 Estimated GFR > 60.0 BUN/Creatinine Ratio 18.8 Glucose 117 H Calcium 9.1 COVID-19 PCR Negative 09/21/20 05:40 WBC RBC Hgb Hct MCV MCH MCHC RDW Plt Count Neut % (Auto) Lymph % (Auto) [place] % (Auto) Eos % (Auto) Baso % (Auto) Neut # (Auto) Lymph # (Auto) [place] # (Auto) Eos # (Auto) Baso # (Auto) Sodium 133 L Potassium 3.7 Chloride 102 Carbon Dioxide 30 BUN 14 Creatinine 0.75 Estimated GFR > 60.0 BUN/Creatinine Ratio 18.7 Glucose 110 Calcium 9.0 COVID-19 PCR PFSH Medical History Aortic stenosis Hypertension Rheumatoid arthritis Surgical History History of cholecystectomy History of foot surgery History of knee replacement History of right hip replacement History of transcatheter aortic valve replacement (TAVR) Family History Father No significant medical problems Mother Hypertension Diverticulosis Social History household members: spouse Smoking Status: Former smoker Assessment & Plan Assessment & Plan narrative: Dr. Lopez will be in later today for formal orthopedic consult. At this time she is to be non-weightbearing of the right knee. She will be fitted for a knee immobilizer by PT and can work with PT today. She will not have surgery today and ok to get one dose of lovenox and eat today. Quality VTE Deep Vein Thrombosis/Pulmonary Embolism Present on Admission: No
[2020-09-21] MEDS: TRAMADOL 50 MG TABLET PO (09:32)
[2020-09-21] MEDS: SODIUM CHLORIDE 0.9% FLUSH 10 ML IV (10:08)
--- NOTE | 2020-09-21 11:00 | PT.IIE ---
Surgical History (Last Reviewed 09/21/20 @ 09:18 by Valerie Cotto PA-C) History of cholecystectomy History of foot surgery History of knee replacement History of right hip replacement History of transcatheter aortic valve replacement (TAVR) Medical History (Last Reviewed 09/21/20 @ 09:18 by Valerie Cotto PA-C) Aortic stenosis Hypertension Rheumatoid arthritis Physical Therapy Inpatient Evaluation/Re-Eval M1 PT/OT-IP Prior Functional Status Start: 09/21/20 12:01 Freq: NEEDED Status: Active Protocol: Document 09/21/20 12:01 CGR (Rec: 09/21/20 12:30 CGR [email or web address]) Medical Review Prior Functional Status Medical History Reviewed Yes Communication Pt is an effective verbal communicator. Mobility and Gait Pt was IND to mod I with a walker as needed. Activities of Daily Living and IADL's Pt was IND for ADLs except that her helped to don her socks and shoes. Prior Functional Level (Other details) Pt's lives with her but is not able to physically assist with more than basic ADLs. Social History Household Members spouse Living Arrangements House Number of Floors (Floors) One Floor Number of Stairs To Enter/Railing? 2 steps to enter. Pt states first step is large. Home Environment Standard Height Toilet,Walk in Shower Home Equipment Front Wheel Walker,Four Wheel Walker,Raised Toilet Seat w/ Armrests,Shower Seat without Backrest Employment Status Retired Additional Social History Comment Pt states she has the above equipment but was not currently using it. M1 PT/OT-IP Prior Functional Status Start: 09/21/20 14:01 Freq: NEEDED Status: Active Protocol: Document 09/21/20 11:00 AB (Rec: 09/21/20 14:23 AB [id number]) Medical Review Prior Functional Status Medical History Reviewed Yes Communication able to make needs known Mobility and Gait pt stated that she is independent with all mobilities and ambulation without AD. stated that spouse assists her with stair climbing. Activities of Daily Living and IADL's Pt was IND for ADLs except that her helped to don her socks and shoes Prior Functional Level (Other details) Pt's lives with her but is not able to physically assist with more than basic ADLs. Social History Household Members spouse Living Arrangements House Number of Floors (Floors) One Floor Number of Stairs To Enter/Railing? 2 platform steps to enter Home Environment Standard Height Toilet,Walk in Shower Home Equipment Front Wheel Walker,Four Wheel Walker Employment Status Retired Additional Social History Comment pt stated that she has a shower chair and RTS in her storage M2 PT-IP Current Condition Start: 09/21/20 14:01 Freq: NEEDED Status: Active Protocol: Document 09/21/20 11:00 AB (Rec: 09/21/20 14:23 [email or web address]) Physical Therapy Current Condition Current Condition Evaluation Date 09/21/20 Treatment Diagnosis R knee periprosthetic fracture ; difficulty in walking Onset Date 09/20/20 Precautions Brace R knee on soft cast Weight Bearing Status Weight Bearing Status Non-Weight Bearing Allowed Weight Bearing Amount (enter % RLE NWB or #) (%) M3 PT-IP Subjective Start: 09/21/20 14:01 Freq: NEEDED Status: Active Protocol: Document 09/21/20 11:00 AB (Rec: 09/21/20 14:23 [email or web address]) Subjective Physical Therapy Visit Type Type Initial Evaluation Visit Start Time 11:00 Visit Stop Time 11:55 Total Visit Minutes 55 Number of WHITE LEAD FILTERER Visits 0 Physical Therapy Visit Comments Patient Comments pt is agreeable to do PT Therapy Pain Assessment Pain When Pain Assessed During Mobility Pain Present Pain Present Pain Reported Location Right Knee Scale Used pain scale not stated Pain Management Techniques Distraction,Modification of Treatment,Re-positioning, Timing of Activity with Medications M4 PT-IP Mobility and Gait Start: 09/21/20 14:01 Freq: NEEDED Status: Active Protocol: Document 09/21/20 11:00 AB (Rec: 09/21/20 14:23 [email or web address]) PT-Bed Mobility Assessment Supine to Sit Supine to Sit Moderate Assistance,1 Person Assistance PT-Transfer Assessment Sit to and From Stand Sit to and from Stand Moderate Assistance,2 Person Assistance Equipment Transfer Assistive Device Gait Belt,Front Wheeled Walker Orthotic/Prosthetic Devices or Brace: No Transfers Transfer Destination Chair Transfer Technique Stand Pivot Transfer Ability Level of Assist Moderate Assistance,2 Person Assistance,Use of Upper Extremities Comments Mobility Comments Received MD order for R knee immobilizer. initiated fitting but pt's R knee has ~ 30-40 degree flexion and unable to straigthen. pt also already has a soft cast on. Knee immobilizer will not be appropriate for the pt due to limited extension range. Hospitalist informed and is ok for pt to stay on soft cast but to maintain NWB. contacted ERNESTO Cotto to inform regarding knee immobilizer and also is ok with pt not to use knee immobilizer and stay on the soft cast and be NWB on RLE. pt completed bed mobility supine to sit mod A and cues. pt was able to sit on EOB min A and cues. completed sit to stand mod A and cues using FWW. completed pivot transfer using FWW mod A x 2 and max cues. postioned pt in bed. call light and table placed within reach. Gait Assessment Comments Gait Comments unable at this time PT-Balance Assessment Sitting Balance and Reactions Static Sitting Balance Ability Good Dynamic Sitting Balance Ability Fair Standing Balance and Reactions Static Standing Balance Ability Poor Dynamic Standing Balance Ability Poor Device Used FWW M5 PT-IP Objective Assessments Start: 09/21/20 14:01 Freq: NEEDED Status: Active Protocol: Document 09/21/20 11:00 AB (Rec: [facility] Orientation Orientation/Cognition Level of Alertness Alert Orientation Name,Age,Place,Situation Language Function Ability No Deficits Noted Safety Awareness Decreased Safety Awareness Memory Description No Deficits Noted Gross Range of Motion Lower Extremity ROM Impairments limited R knee extension : currently R knee is in 40 deg of knee flexion with increase pain and muscle guarding Strength Lower Extremity Strength Assessment Right Impaired Hip 3+/5 Knee n/t Muscle Tone Muscle Tone WNL Yes M6 PT-IP Treatment Start: 09/21/20 14:01 Freq: NEEDED Status: Active Protocol: Document 09/21/20 11:00 AB (Rec: 09/21/20 14:23 [email or web address]) Physical Therapy Treatment Education Education Provided Precautions,Safety M7 PT-IP Assessment and Plan Start: 09/21/20 14:01 Freq: NEEDED Status: Active Protocol: Document 09/21/20 11:00 AB (Rec: 09/21/20 14:[facility] PT Summary Assessment and Plan Potential Rehabilitation Potential Good Status of Condition at Evaluation Evolving Summary Impairments Pain,ROM,Strength,Balance, Coordination,Sensation,Tone, Cognition,Bed Mobility, Transfers,Gait,Activity Tolerance Assessment Summary pt with R knee periprosthetic fx and is NWB at this time. Per hospitalist, ortho will consult pt if surgery is indicated at this time or not. pt currently requires 2 person assist with mobility and is unable to ambulate. pt has limited assistance at home as pt's spouse will not be able to physically assist pt due to his own medical issues. will continue to assess pt's progress but at this time will require SNF rehab. Goals Bed Mobility Goal Standby Assistance Transfer Goal Contact Guard Assistance,Front Wheeled Walker Gait Goal Contact Guard Assistance,Front Wheel Walker Gait Distance 25 Days to Meet Goals 10 Frequency of Treatment Frequency Of Treatment Twice a Day Treatment Plan Physical Therapy Treatment Plan Bed Mobility Training,Transfer Training,Gait Training, Therapeutic Exercise,Balance Retraining,Discharge Planning, Hot or Cold Pack,Neuromuscular Re-ed,Coordination Retraining Other Recommendations and Next Treatment transfers, standing bal/augustus Focus Recommendations To Nursing Amount of Assist Needed 2 Person Assist Discharge Recommendations PT Discharge Recommendations SNF Rehab Transportation Needs at Discharge Wheelchair/Cabulance
--- NOTE | 2020-09-21 11:59 | OT.IP.EVAL ---
Past Medical History (Last Reviewed 09/21/20 @ 09:18 by Valerie Cotto PA-C) Aortic stenosis Hypertension Rheumatoid arthritis Surgical History (Last Reviewed 09/21/20 @ 09:18 by Valerie Cotto PA-C) History of cholecystectomy History of foot surgery History of knee replacement History of right hip replacement History of transcatheter aortic valve replacement (TAVR) Occupational Therapy Inpatient Evaluation/Re-Eval M1 PT/OT-IP Prior Functional Status Start: 09/21/20 12:01 Freq: NEEDED Status: Active Protocol: Document 09/21/20 12:01 CGR (Rec: 09/21/20 12:30 CGR [email or web address]) Medical Review Prior Functional Status Medical History Reviewed Yes Communication Pt is an effective verbal communicator. Mobility and Gait Pt was IND to mod I with a walker as needed. Activities of Daily Living and IADL's Pt was IND for ADLs except that her helped to don her socks and shoes. Prior Functional Level (Other details) Pt's lives with her but is not able to physically assist with more than basic ADLs. Social History Household Members spouse Living Arrangements House Number of Floors (Floors) One Floor Number of Stairs To Enter/Railing? 2 steps to enter. Pt states first step is large. Home Environment Standard Height Toilet,Walk in Shower Home Equipment Front Wheel Walker,Four Wheel Walker,Raised Toilet Seat w/ Armrests,Shower Seat without Backrest Employment Status Retired Additional Social History Comment Pt states she has the above equipment but was not currently using it. M2 OT-IP Current Condition Start: 09/21/20 12: Freq: Status: Active Protocol: Document 09/21/20 12:01 CGR (Rec: 09/21/20 12:30 CGR [email or web address]) Occupational Therapy Current Condition Current Condition Evaluation Date 09/21/20 Treatment Diagnosis Fx of the lateral distal femoral metaphysis s/p fall Diagnosis Onset Date 09/20/20 Post Operative Precautions Other Precautions Knee immobilizer. Per ok to remove soft brace to don knee immobilizer but pt was unable to straighten knee for proper fitting of knee immobilizer. Soft brace donned and wrapped as found. Weight Bearing Status Weight Bearing Status Non-Weight Bearing M3 OT- IP Subjective and Pain Start: 09/21/20 12:01 Freq: Status: Active Protocol: Document 09/21/20 12:01 CGR (Rec: 09/21/20 12:30 CGR [email or web address]) OT- Subjective Occupational Therapy Visit Type Type Initial Evaluation Visit Start Time 11:05 Visit Stop Time 11:59 Total Visit Minutes 54 Notes Co-treat with P.T. Occupational Therapy Visit Comments Patient Comments I will try it when asked about getting out of bed. OT Pain Assessment Pain When Pain Assessed At Rest Pain Present Pain Present Pain Reported Location Right Knee Intensity 4 Scale Used Numeric (0 - 10) Management Techniques Distraction,Elevation, Modification of Treatment,Re- positioning M4 OT- IP ADL's Start: 09/21/20 12:01 Freq: Status: Active Protocol: Document 09/21/20 12:01 CGR (Rec: 09/21/20 12:30 CGR [email or web address]) OT [id number] General Evaluation Self-Feeding Ability Independent Comments OT Self-Feeding Comments lunch seated in chair at end of session OT ADL-Grooming General Evaluation Grooming Ability Standby Assistance Areas Needing Assistance Retrieving/Set-up of Grooming Items,Combing/Brushing Hair, Face Washing Comments OT Grooming Comments seated in chair OT ADL-Oral Care General Eval Oral Care Ability Standby Assistance Areas of Assistance Brushing Teeth,Retrieving/Set- Up of Items Comments Oral Care Comments seated in chair OT ADL-Dressing General Eval Lower Body Dressing Ability Total Assistance Areas Needing Assistance Socks OT ADL-Toileting General Evaluation Toileting Ability Moderate Assistance Areas Needing Assistance Manage Clothing Devices Toileting Assistive Devices Bedpan Comments OT Toileting Comments Pt was able to bridge using her LLE and bedpan was placed. Pt then performed pericare after urinating and bedpan removed. OT ADL-Bathing Comments OT Bathing Comments Not performed M5 OT- IP IADL's Start: 09/21/20 12:01 Freq: Status: Active Protocol: Document 09/21/20 12:01 CGR (Rec: 09/21/20 12:30 CGR [email or web address]) OT-Instrumental Activities of Daily Living Deficits IADL Deficits Identified No Deficits Home Safety Awareness Awareness of Need for Assistance at Home Good Awareness Ability to Problem Solve Emergency Able to Problem Solve Situations Medication Management Medication Management No Deficits Identified Money Management Money Management No Deficits Identified Meal Preparation Meal Preparation Caregiver Provides Assist Railroad Carman Railroad Carman Caregiver Provides Assist Driving Driving Comments Pt states that both her and her are active drivers . M6 OT- IP Functional Cognition Start: 09/21/20 12:01 Freq: Status: Active Protocol: Document 09/21/20 12: CGR (Rec: 09/21/20 12:30 CGR [email or web address]) Cognitive Factors Limiting Selfcare Function Cognitive Ability Level of Alertness Alert Patient Orientation Name,Age,Birthday,Month,Date, Year,Day of Week,Place, Situation Attention Span Ability Capable of Focused Attention, Capable of Sustained Attention Ability to Follow Commands Able to Follow One Step Commands with Increased Time, Able to Follow One Step Commands with Repetition Memory Description No Deficits Noted Safety Awareness No Deficits Noted OT- Vision and Hearing OT- Hearing Assessment OT- Hearing Assessment Hearing Impaired OT- Vision Assessment Visual Acuity Glasses All The Time Visual Attentiveness WFL Occular Pursuits WFL Visual Convergence WFL M7 OT- IP Mobility and Balance Start: 09/21/20 12:01 Freq: Status: Active Protocol: Document 09/21/20 12: CGR (Rec: 09/21/20 12:30 CGR [email or web address]) OT- Bed Mobility Assessment Supine to Sit Supine to Sit Assist Maximum Assistance,2 Person Assistance,Bedrails Scooting Scooting to Edge of Bed Minimal Assistance OT-Transfer Assessment Sit to and From Stand Sit to and from Stand Minimal Assistance,Moderate Assistance,2 Person Assistance Transfers Transfer Ability Minimal Assistance,Moderate Assistance,2 Person Assistance Technique Transfer Destination Bed,Chair Transfer Technique Stand Pivot Devices Transfer Assistive Devices Gait Belt,Front Wheeled Walker Comments Mobility Comments Pt was able to transfer to chair with stand pivot. OT- Gait Assessment Comments Gait Ability Comments Did not occur. OT- Balance Assessment Sitting Balance and Reactions Static Sitting Balance Ability Good Dynamic Sitting Balance Ability Good M8 OT- IP Objective Assessments Start: 09/21/20 12:01 Freq: Status: Active Protocol: Document 09/21/20 12:01 CGR (Rec: 09/21/20 12:30 CGR [email or web address]) OT Gross Range of Motion Upper Extremity Range of Motion Assessment Bilaterally Impaired ROM Impairments Shlds 0-90, hand restrictions d/t RA OT Strength Comments Strength Comments grossly 4/5 except hand OT- Coordination Assessment Upper Extremity Finger to Nose Test Within Functional Limits Finger Tapping Test Within Functional Limits OT-Muscle Tone Assessment Muscle Tone WNL Yes OT Sensation Assessment Edema Edema Absent M9 OT- IP Assessment and Plan Start: 09/21/20 12:01 Freq: Status: Active Protocol: Document 09/21/20 12:01 CGR (Rec: 09/21/20 12:30 CGR [email or web address]) OT Summary Assessment and Plan Potential Rehabilitation Potential Good Analytic Complexity at Evaluation Moderate Summary OT Impairments Pain,Range of Motion,Strength, Functional Cognition, Functional Mobility,Grooming, Dressing,Toileting,Bathing, Toilet Transfers,Shower Transfers,Activity Tolerance Progress Towards Goals Slow Progress due to Pain,Slow Progress due to Medical Issues Assessment Summary Pt presents as a moderate complexity evaluation s/p admit for fall and found to have a R lateral distal femoral metaphysis. Pt is NWB with orders for a knee immobilizer at this time. Attempted to don knee immobilizer but pt's knee currently flexed ~30-40 degrees. Pt left in soft splint for stand pivot to chair. Pt did well but needs assist for all mobility. Recommend d/c to SNF. Goals Grooming Goal Independent Dressing Goal Independent Toileting Goal Independent Bathing Goal Independent Toilet Transfer Goal Independent Shower Transfer Goal Independent Days to Meet Goals 20 Frequency of Treatment Frequency Of Treatment Once a Day Treatment Plan OT Treatment Plan ADL Training,Functional Cognition Training,Functional Mobility,Patient/Family Education,Discharge Planning Other Treatment Recommendations and Next [facility] [place] Focus Discharge Recommendations OT Discharge Recommendations SNF Rehab Home Equipment Needs TBD Transportation Needs at Discharge Private Vehicle
[2020-09-21] MEDS: ACETAMINOPHEN 325 MG TABLET 975 MG PO ×3 (13:07→23:35)
--- NOTE | 2020-09-21 13:14 | P.PN_ITS ---
Subjective Subjective Date Patient Seen: 09/21/20 Interval history: Tessa Segal is a 75-year-old female with a past medical history significant for hypertension, aortic stenosis status post TAVR and rheumatoid arthritis on Enbrel who presented to the ED via EMS following a mechanical ground level fall and knee pain. The patient is resting in bedside chair comfortably. She has mild right mild knee discomfort that is controlled with pain medications. She is disappointed that she has a significant fracture of distal right femur but happy to hear the ortho team is planning to fix it surgically. She denies headache, sore throat, cough, shortness of breath, chest pain, abdominal pain, nausea, vomiting, fever, chills, dysuria, diarrhea or constipation. She is voiding and eliminating without difficulty. She is up ambulating minimally with walker and assistance with no weight bearing on right lower extremity. Exam Vital Signs (past 8 hours): - 09/21/20 07:00 09/21/20 07:10 09/21/20 08:26 Temperature 97.3 F L Pulse Rate 69 67 Respiratory Rate 16 Blood Pressure 128/55 L 128/55 L Pulse Oximetry 95 96 09/21/20 11:00 Temperature Pulse Rate Respiratory Rate Blood Pressure Pulse Oximetry 95 Fraction of Inspired Oxygen 21 Oxygen Delivery Method Room Air Oxygen Flow Rate 0 Narrative Exam Narrative: General: Elderly female sitting in bedside chair and in no acute distress, well-developed, well-nourished, appropriately interactive. HEENT: Normocephalic, atraumatic. External ears without defect. Pupils equal, round, and reactive to light. Anicteric sclerae, moist conjunctivae, and no lid lag. Oropharynx free of erythema and cobble stoning with moist mucosa. Neck: Supple with full range of motion. No jugular venous distension. No lymphadenopathy or thyromegaly. Cardiovascular: Regular rate and rhythm with soft grade 2/6 holosystolic murmur LSB. No rubs or gallops appreciated. Pulmonary: Clear to auscultation bilaterally without crackles, wheezes, or rhonchi. Normal respiratory effort with no use of accessory muscles. Abdomen: Soft, bowel sounds present, nontender, nondistended. No hepatosplenomegaly or masses appreciated. Extremities: No clubbing, cyanosis, or edema. Rheumatoid arthritis of hands and feet. Right leg with soft cast and Finn wrap in place. Skin: Normal temperature, turgor, and texture; no rash, ulcers, or subcutaneous nodules appreciated. Neurological: Cranial nerves grossly intact. Psychiatric: Normal mood and affect. Alert and oriented to person, place, and time. Objective Labs Result Diagrams: 09/23/20 05:45 09/24/20 05:35 Labs: Laboratory Results - last 24 hr 09/20/20 09/20/20 09/21/20 22:19 22:40 05:40 WBC 6.0 RBC 3.76 L Hgb 11.0 L Hct 33.0 L MCV 87.9 MCH 29.2 MCHC 33.2 RDW 13.9 Plt Count 94 L Neut % (Auto) 70.5 Lymph % (Auto) 15.7 L [place] % (Auto) 11.8 Eos % (Auto) 1.1 L Baso % (Auto) 0.9 Neut # (Auto) 4300 Lymph # (Auto) 900 L [place] # (Auto) 700 Eos # (Auto) 100 Baso # (Auto) 100 Sodium 133 L Potassium 3.3 L Chloride 101 Carbon Dioxide 33 H BUN 15 Creatinine 0.80 Estimated GFR > 60.0 BUN/Creatinine Ratio 18.8 Glucose 117 H Calcium 9.1 COVID-19 PCR Negative 09/21/20 05:40 WBC RBC Hgb Hct MCV MCH MCHC RDW Plt Count Neut % (Auto) Lymph % (Auto) [place] % (Auto) Eos % (Auto) Baso % (Auto) Neut # (Auto) Lymph # (Auto) [place] # (Auto) Eos # (Auto) Baso # (Auto) Sodium 133 L Potassium 3.7 Chloride 102 Carbon Dioxide 30 BUN 14 Creatinine 0.75 Estimated GFR > 60.0 BUN/Creatinine Ratio 18.7 Glucose 110 Calcium 9.0 COVID-19 PCR [facility] Medical History Aortic stenosis Hypertension Rheumatoid arthritis Surgical History History of cholecystectomy History of foot surgery History of knee replacement History of right hip replacement History of transcatheter aortic valve replacement (TAVR) Family History Father No significant medical problems Mother Hypertension Diverticulosis Social History household members: spouse Smoking Status: Former smoker alcohol intake: current Assessment & Plan Assessment & Plan narrative: Tessa Segal is a 75-year-old female with a past medical history significant for hypertension, aortic stenosis status post TAVR and rheumatoid arthritis on Enbrel who presented to the ED via EMS following a mechanical ground level fall and knee pain. 1. Closed fracture of lateral distal femoral metaphysis, status post right total knee arthroplasty, acute, present on admission, active. -Patient sustained a periprosthetic distal femur fracture and is nonambulatory and nonweightbearing on right lower extremity per Orthopedics. Patient is unable to use crutches secondary to her advanced rheumatoid arthritis and joint deformities of upper and lower extremities. -CT right lower extremity without contrast demonstrated mildly impacted fracture at the lateral aspect of the distal femoral metaphysis with mild valgus angulation and status post right total knee arthroplasty with moderate lipohemarthrosis. -Consulted orthopedic surgery, Dr. Lopez, who plans to perform closed reduction tomorrow and place patient in a hard cast in hopes this will ameliorate the problem and not require complex revisional surgery. NPO at midnight. -Continue acetaminophen 975 mg every 8 hours, tramadol 50-100 mg every 6 hours as needed for moderate pain, oxycodone 5 mg every 4 hours as needed for moderate to severe pain, and morphine 2 mg IV every 4 hours as needed for severe breakth rough pain. -Continue physcial and occupational therapy evaluation and treatment. Patient did not tolerate knee immobilizer. Continue no weight bearing on right leg. 2. Rheumatoid arthritis, chronic, present on admission. Stable. -Patient with joint deformities bilateral hands with decreased range of motion of wrists ankles and feet. The patient does not routinely use assistive devices at home. -She is status post bilateral total knee arthroplasty, right total hip arthroplasty and previous wrist injury -Patient is presently nonweightbearing on the right leg related to periprosthetic fracture distal femur noted at problem 1 above and is unable to use crutches. -Continue physical and occupational therapy evaluation and treatment. 3. Hypertension, chronic, present on admission. Stable. -Patient with elevated blood pressure 171/74 upon arrival to the ER likely elevated secondary to pain rated as an 8/10 upon arrival, improved to 140/54 upon admission to the inpatient unit. -Continue telmisartan 80 mg daily and held hydrochlorothiazide due to hyponatremia and hypokalemia. 4. Hypokalemia, acute, present on admission. Active. -Patient is on diuretic therapy with hydrochlorothiazide 25 mg which has been held. -Initial potassium level 3.3. Received potassium 40 mEq PO x1. Potassium level improved to 3.7. -Continue to monitor potassium replete as necessary. 5. Hyponatremia, unknown if acute or chronic, present on admission, stable -Initial sodium level 133. -Continue conservative management and held home hydrochlorothiazide and encourage fluid intake. -Continue to monitor sodium level daily. 6. Aortic stenosis, status post TAVR, chronic, present on admission. Stable. -No complaints of chest pain or dyspnea. -Previous echocardiogram 09/2017 demonstrated an EF of 60-65% prior to TAVR procedure. -Patient is followed by cardiology outpatient. Code status: Full code, the patient designates her to be surrogate decision maker VTE prophylaxis: Enoxaparin Disposition: Patient remains hospitalized pending orthopedic surgery evaluation and plan. Quality VTE Deep Vein Thrombosis/Pulmonary Embolism Present on Admission: No
--- NOTE | 2020-09-21 13:48 | CM.IDA ---
Initial DCP Assessment Note Pt is a 75 yo female, resident of [place], presents to the ED after a GLF at home w/subsequent periprosthetic right femur fx. According to Dr Pruitt; Dr Lopez is consulting today from Ortho team and she feels patient will require extensive surgical repair, now awaiting information about when patient can be scheduled for surgery. PCP: Dada Garrido Payer: [facility]/[employer] Reviewed chart, met w/patient this morning to introduce role. Patient lives at home w/spouse, she explains she has been mostly indp and active, spouse is on kidney dialysis at home, infuses overnight. Spouse is quite limited in ability to assist patient at this time, adult children (one in [place], one out of state) both work software quality assurance engineer. Patient awaiting more information about medical POC. Patient has no h/o HH or SNF although would consider either of these options since she does not have much assist available at home. Patient has been switched from observation to inpatient as of 09.20.20; likely will require SNF stay. Following closely for coordination of DCP once medical POC is clearer. AYANNA Warren
--- NOTE | 2020-09-21 14:01 | PC.NURSE ---
Patient is alert and orientated. VSS, lung sounds are dim throughout. Patient has pain 5/10, pain control with 50mg tramadol and tylenol 975mg. Patient is comfortable in chair, did not tolerate knee immobilizer.
--- NOTE | 2020-09-21 14:30 | PT.IPTN ---
Physical Therapy Treatment Note M2 PT-IP Current Condition Start: 09/21/20 14:01 Freq: NEEDED Status: Active Protocol: Document 09/21/20 11:00 AB (Rec: 09/21/20 14:23 AB [email or web address]) Physical Therapy Current Condition Current Condition Evaluation Date 09/21/20 Treatment Diagnosis R knee periprosthetic fracture ; difficulty in walking Onset Date 09/20/20 Precautions Brace R knee on soft cast Weight Bearing Status Weight Bearing Status Non-Weight Bearing Allowed Weight Bearing Amount (enter % RLE NWB or #) (%) M3 PT-IP Subjective Start: 09/21/20 14:01 Freq: NEEDED Status: Active Protocol: Document 09/21/20 14:30 AB (Rec: 09/21/20 15:48 AB [email or web address]) Subjective Physical Therapy Visit Type Type Treatment Note Visit Start Time 14:30 Visit Stop Time 15:01 Total Visit Minutes 31 Number of SAFETY ADMINISTRATOR Visits 0 Physical Therapy Visit Comments Patient Comments pt is agreeable to do PT Therapy Pain Assessment Pain When Pain Assessed During Mobility Pain Present Pain Present Pain Reported Location Right Knee Scale Used pain scale not stated M4 PT-IP Mobility and Gait Start: 09/21/20 14:01 Freq: NEEDED Status: Active Protocol: Document 09/21/20 14:30 AB (Rec: 09/21/20 15:48 AB [email or web address]) PT-Bed Mobility Assessment Sit to Supine Sit to Supine Moderate Assistance,1 Person Assistance PT-Transfer Assessment Sit to and From Stand Sit to and from Stand Moderate Assistance,1 Person Assistance,Use of Upper Extremities Equipment Transfer Assistive Device Gait Belt,Front Wheeled Walker Orthotic/Prosthetic Devices or Brace: Yes Transfers Transfer Destination Bed,Bedside Commode Transfer Technique Stand Pivot Transfer Ability Level of Assist Moderate Assistance,Maximum Assistance,Use of Upper Extremities Comments Mobility Comments completed sit to stand from chair mod A and cues. completed pivot transfer to bedside commode mod to max A and max cues. required max A for controlled descent. completed sit to stand from bedside commode mod A and cues and transferred to bed using FWW mod to max A and max cues. required assist for maneuvering FWW. completed sit to supine mod A for RLE elevation to bed. positioned in bed. call light and table placed within reach. M5 PT-IP Objective Assessments Start: 09/21/20 14:01 Freq: NEEDED Status: Active Protocol: Document 09/21/20 11:00 AB (Rec: 09/21/20 14:23 AB [id number]) Orientation Orientation/Cognition Level of Alertness Alert Orientation Name,Age,Place,Situation Language Function Ability No Deficits Noted Safety Awareness Decreased Safety Awareness Memory Description No Deficits Noted Gross Range of Motion Lower Extremity ROM Impairments limited R knee extension : currently R knee is in 40 deg of knee flexion with increase pain and muscle guarding Strength Lower Extremity Strength Assessment Right Impaired Hip 3+/5 Knee n/t Muscle Tone Muscle Tone WNL Yes M6 PT-IP Treatment Start: 09/21/20 14:01 Freq: NEEDED Status: Active Protocol: Document 09/21/20 14:30 AB (Rec: 09/21/20 15:48 AB [id number]) Physical Therapy Treatment Education Education Provided Weight Bearing Status,Safety M7 PT-IP Assessment and Plan Start: 09/21/20 14:01 Freq: NEEDED Status: Active Protocol: Document 09/21/20 14:30 AB (Rec: 09/21/20 15:48 AB [email or web address]) PT Summary Assessment and Plan Potential Rehabilitation Potential Good Summary Impairments Pain,ROM,Strength,Balance, Coordination,Sensation,Bed Mobility,Transfers,Gait, Activity Tolerance Progress Towards Goals Slow Progress due to Pain,Slow Progress due to Medical Issues Assessment Summary pt requiring mod to max A and max cues with mobility. spouse in room and confirmed that he cannot assist pt much at home. also informed that they have a w/c but has steps to get into the house. pt has RA and has other medical conditions contributing to decrease mobility. pt jere need SNF rehab to improve strength and function. Goals Bed Mobility Goal Standby Assistance Transfer Goal Contact Guard Assistance,Front Wheeled Walker Gait Goal Contact Guard Assistance,Front Wheel Walker Gait Distance 25 Days to Meet Goals 10 Frequency of Treatment Frequency Of Treatment Twice a Day Treatment Plan Physical Therapy Treatment Plan Bed Mobility Training,Transfer Training,Gait Training, Therapeutic Exercise,Balance Retraining,Discharge Planning, Hot or Cold Pack,Neuromuscular Re-ed,Coordination Retraining Other Recommendations and Next Treatment transfers, standing bal/augustus Focus Recommendations To Nursing Amount of Assist Needed 2 Person Assist Discharge Recommendations PT Discharge Recommendations SNF Rehab Transportation Needs at Discharge Wheelchair/Cabulance
[2020-09-21] MEDS: SODIUM CHLORIDE 0.9% 1,000 ML 100 ML IV (18:04)
--- NOTE | 2020-09-21 19:10 | PM.HP.1 ---
History of Present Illness History of Present Illness Date Patient Seen: 09/21/20 Time Patient Seen: 19:13 Chief complaint: Fall Narrative: She is a pleasant 75-year-old female with a history of rheumatoid arthritis and bilateral total knee arthroplasties. She also has a history of a right total hip arthroplasty. She was in her chair yesterday when her right foot got caught and her leg got twisted and she was going to catapulted out of her chair and noted the acute onset of severe right leg pain and deformity. She notes that her leg was significantly deformed initially she did realign it slightly prior to the ambulance arriving. She has a very complex social situation her just recently got started on peritoneal dialysis and she has been doing more of the household activities because of that. She has a longstanding history of rheumatoid arthritis but notes that she had cut back on her D more medications including Enbrel during the COVID crisis because her was having difficulty giving her shots. She notes that her rheumatoid seems to be relatively stable recently. Both of her knees were functioning pretty well prior to this acute injury. She has some stiffness and deformity of bilateral hands does not note severe problems with her elbows or shoulders. She was not using a cane prior to the current injury. She has a couple steps in her home to get into the house. Patient History Medical History Aortic stenosis Hypertension Rheumatoid arthritis Surgical History History of cholecystectomy History of foot surgery History of knee replacement History of right hip replacement History of transcatheter aortic valve replacement (TAVR) Family & Social History Family History Father No significant medical problems Mother Hypertension Diverticulosis Social History: household members spouse Prior Living Arrangements House Safety & Behavioral: Feels Safe in Current Yes Environment Been Physically Hurt or No Threatened By a Person Suicidal Ideation Description None Suicide Plan Description No Plan Tobacco & Substance use: Smoking Status Former smoker alcohol intake frequency other Substance Use Type does not use Meds Home Medications and Allergies Home Medications Medication Instructions Recorded Confirmed Type carvedilol [Coreg] 12.5 mg PO BID 09/20/20 09/20/20 History telmisartan-hydrochlorothiazid 1 tab PO DAILY 09/20/20 09/20/20 History [Micardis HCT] tramadol 50 mg PO Q6H PRN #20 tab 09/20/20 Rx Allergies Allergy/AdvReac Type Severity Reaction Status Date / Time No Known Drug Allergies Allergy Verified 09/20/20 15:32 Review of Systems Review of Systems Narrative: Multiple deformed joint she notes that she has essentially fusions in 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 She does have some difficulty with both hands but it is not severe. She also has had some problems in the pretibial area of the right leg. Exam Vital Signs (past 8 hours): - 09/21/20 14:14 09/21/20 15:00 09/21/20 17:00 Temperature 97.0 F L 99.0 F Pulse Rate 64 66 Respiratory Rate 16 14 Blood Pressure 95/42 L 124/53 L Pulse Oximetry 95 95 92 Fraction of Inspired Oxygen 21 Oxygen Delivery Method Room Air Oxygen Flow Rate 0 Narrative Exam Narrative: HEENT is benign, she has reasonable range of motion of her neck, lungs are clear, cor regular rate and rhythm, abdomen is benign, she has pain with any attempted range of motion in her right knee there is obvious valgus deformity of the right knee she does have a splint in place, her skin is intact distally along her foot but she does have a small callus under her right hallux MTP joint, there was essentially no range of motion in her right ankle or right foot but she has a plantigrade foot without significant deformity in a resting position foot is warm there is no obvious pain with gentle range of motion in hip, 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 she has fair range of motion into the left knee no pain with range of motion in the left knee or left hip Objective Labs Result Diagrams: 09/21/20 05:40 09/21/20 05:40 Labs: Laboratory Results - last 24 hr 09/20/20 09/20/20 09/21/20 22:19 22:40 05:40 WBC 6.0 RBC 3.76 L Hgb 11.0 L Hct 33.0 L MCV 87.9 MCH 29.2 MCHC 33.2 RDW 13.9 Plt Count 94 L Neut % (Auto) 70.5 Lymph % (Auto) 15.7 L [place] % (Auto) 11.8 Eos % (Auto) 1.1 L Baso % (Auto) 0.9 Neut # (Auto) 4300 Lymph # (Auto) 900 L [place] # (Auto) 700 Eos # (Auto) 100 Baso # (Auto) 100 Sodium 133 L Potassium 3.3 L Chloride 101 Carbon Dioxide 33 H BUN 15 Creatinine 0.80 Estimated GFR > 60.0 BUN/Creatinine Ratio 18.8 Glucose 117 H Calcium 9.1 COVID-19 PCR Negative 09/21/20 05:40 WBC RBC Hgb Hct MCV MCH MCHC RDW Plt Count Neut % (Auto) Lymph % (Auto) [place] % (Auto) Eos % (Auto) Baso % (Auto) Neut # (Auto) Lymph # (Auto) [place] # (Auto) Eos # (Auto) Baso # (Auto) Sodium 133 L Potassium 3.7 Chloride 102 Carbon Dioxide 30 BUN 14 Creatinine 0.75 Estimated GFR > 60.0 BUN/Creatinine Ratio 18.7 Glucose 110 Calcium 9.0 COVID-19 PCR X-rays show a right distal femoral supracondylar femur fracture with valgus deformity and a fairly distal fracture with limited bone along the distal fragment, there is no obvious tibial loosening, CT scan is relatively poor quality does reconfirmed the supracondylar femur fracture but does not fully elucidate the fracture pattern. Assessment & Plan Assessment & Plan narrative: Right distal femur fracture above a right total knee arthroplasty. Displaced fracture with significant valgus deformity. I discussed the complexity of the problem in detail with the patient. She has got severe rheumatoid arthritis she has fused ankles bilaterally and multiple joint involvement especially in her hands. To complex fracture which is periprosthetic with a fairly small distal fragment. I told her that I think she needs an examination with fluoroscopy and anesthesia with the plan for probable closed reduction and application of a cast. She may require a revision right total knee arthroplasty with a distal femoral replacement. Based on the current radiographs it looks like her fracture is too distal for an open reduction internal fixation. It is uncertain whether there is evidence of distal femoral loosening from the distal bone fragment. She has problems with her mobility. Her social situation is somewhat tenuous as she was helping her with his peritoneal dialysis which is a fairly new problem. In addition to the she is has her fracture in the middle of the COVID crisis where there was somewhat limited resources including senior living facilities and any home health. I told her we will take it steps was do closed reduction and placed her in a cast tomorrow further analyze her fracture to see if she needs more definitive treatment either with a open reduction internal fixation or possible distal femoral replacement. Quality VTE Deep Vein Thrombosis/Pulmonary Embolism Present on Admission: No
[2020-09-21 21:02] LABS: Appearance Urine UA CLEAR; Bilirubin Urine UA NEGATIVE (NEGATIVE); Color Urine UA YELLOW; Glucose Urine UA NEGATIVE (Negative); Ketones Urine UA TRACE (NEGATIVE); Leukocyte Esterase Urine UA NEGATIVE (NEGATIVE); Nitrite Urine UA POSITIVE (Negative); Occult Blood Urine UA NEGATIVE (Negative); Protein Urine UA NEGATIVE (Negative); Urobilinogen Urine UA 0.2 E.U./dL (0.2)
[2020-09-21 21:11] LABS: Bacteria Urine Moderate (10-30); Culture Indicated Urine Specimen Cultured; RBC Urine 0-1/HPF (0-5/HPF); Squamous Epithelial Cell Urine 1-5 /HPF (0-5/HPF); Transitional Epi Cells Urine 5-10/HPF (0-5/HPF); WBC Urine 10-30/HPF (0-5/HPF); pH Urine UA 6.5 (4.5-8.0)
--- NOTE | 2020-09-21 21:58 | PC.NURSE ---
Addendum entered by Neida Sexton R.N. 09/21/20 22:15: Declines use of hospital issued cpap this evening. States this cpap is uncomfortable and spouse is bringing in pt's own 09/22. Original Note: Discussion with hospitalist Rodrigo ag pt's low urinary output this evening shift and NPO status after midnight. Orders to continue iv fluids per VALE Wallace and hold coreg this evening after discussion of pt's vital signs. Pt required assist x 2 to commode with nonweightbearing RLE. Pt is compliant with this directive. Splint in place to RLE. Ice replaced to RLE and elevated on pillow x 1 upon return to bed. SCD on LLE only. Encouraged to call for needs/wants. Offered foods/fluids and pt declined.
[2020-09-21] MEDS: CEFTRIAXONE 1 GM/50 ML FROZ.PIGGY IV (22:38)
--- NOTE | 2020-09-21 23:17 | PC.NURSE ---
Addendum entered by April Hernandez R.N. 09/21/20 23:21: Bladder scan post-void at 1999 shows no residual volume Original Note: Hypotensive, beta marshal held per provider direction. Fluids started, NPO at midnight. MD Lopez w/ consent, signed w/ this RN. UA obtained, UTI present, voiding minimally and frequently. Low oral intake. Leg splinted, deb wrapped, and elevated w/ ice. Denied pain.
[2020-09-22] VITALS (22 sets, daily range): BP systolic 98–171; BP diastolic 35–77; PULSE 64–96; RESP 8–19; TEMP 36.2–37.4; O2SAT 67–100; BMI 29.5
--- NOTE | 2020-09-22 | DI.RAD.S_ITS ---
PROCEDURE: XR KNEE RT 4V INDICATIONS: CLOSED REDUCTION DISTAL FEMUR TECHNIQUE: Fluoroscopic images were obtained during an operative procedure and submitted for interpretation following the completion of the procedure. COMPARISON: [facility], CT, CT LE RT WO CON, 09/20/2020, 17:01. [facility], CR, XR KNEE RT 3V, 09/21/2020, 8:29. FINDINGS: These fluoroscopic images were performed for intraoperative localization. On these images, there is improved anatomic alignment of the distal femur fracture. Please correlate with intraoperative findings. IMPRESSION: Normal intraoperative examination. Dictated by: Justin Perales M.D. on 09/22/2020 at 9:19 Approved by: Justin Perales M.D. on 09/22/2020 at 9:22
[2020-09-22] MEDS: SODIUM CHLORIDE 0.9% 1,000 ML 100 ML IV (04:27)
[2020-09-22] MEDS: MORPHINE 2 MG/ML INJ IV ×2 (05:07→10:47)
[2020-09-22 06:03] LABS: Add Manual Diff / Slide Review NO; Basophils Absolute Auto 100 /uL (0-100); Basophils Percent Auto 1.2 % (0-2); Eosinophils Absolute Auto 300 /uL (0-450); Eosinophils Percent Auto 5.1 % (2-4); Hematocrit 32.2 % (36-46); Hemoglobin 10.7 g/dL (12.0-16.0); Lymphocytes Absolute Auto 1100 /uL (1100-4500); Mean Corpuscular HGB Conc 33.3 % (30-36); Mean Corpuscular Hemoglobin 29.5 PG (26-34); Mean Corpuscular Volume 88.7 fL (80-100); Monocytes Absolute Auto 800 /uL (0-900); Neutrophils Absolute Auto 3600 /uL (1500-7000); Neutrophils Percent Auto 60.7 % (50-75); Platelet Count 84 X10^3/uL (150-400); Red Blood Cell Count 3.63 X10^6/uL (4.0-5.2); White Blood Cell Count 5.9 X10^3/uL (4.5-11.0)
[2020-09-22 06:07] LABS: INR 1.1 (0.9-1.3); Prothrombin Time 13.1 SECONDS (10.1-12.7)
[2020-09-22 06:30] LABS: Alanine Aminotransferase 11 IU/L (<35); Albumin 3.2 g/dL (3.5-5.0); Alkaline Phosphatase 59 U/L (38-126); Aspartate Aminotransferase 28 IU/L (14-36); BUN Creatinine Ratio 21.9 (6-22); Bilirubin Total 1.6 mg/dL (0.2-1.3); Blood Urea Nitrogen 16 mg/dL (7-17); Calcium 8.5 mg/dL (8.4-10.2); Carbon Dioxide 30 mmol/L (22-32); Chloride 102 mmol/L (98-107); Estimated Glomerular Filt Rate > 60.0 mL/min (>60); Globulin 3.1 g/dL (1.7-4.1); Glucose 102 mg/dL (80-110); HEMOLYSIS < 15 (0-50); Magnesium 1.5 mg/dL (1.6-2.3); Potassium 3.3 mmol/L (3.4-5.1); Sodium 132 mmol/L (137-145); Total Protein 6.3 g/dL (6.3-8.2)
[2020-09-22 06:38] LABS: Procalcitonin < 0.05 ng/mL (<0.5)
--- NOTE | 2020-09-22 06:55 | PC.NURSE ---
VALE Wallace notified with Potassium level of 3.3. Will report to day MARY.
[2020-09-22] MEDS: POTASSIUM CHLORIDE 40 MEQ in SODIUM CHLORIDE 0.9% 500 ML 130 ML IV (07:18)
--- NOTE | 2020-09-22 09:38 | SUR.OPER ---
Supine on padded OR bed, head on pillow, arms secured on padded arm boards at <90 degrees abduction, legs uncrossed, safety belt at thigh, tape over blanket over lower legs.
--- NOTE | 2020-09-22 09:57 | P.OP_ITS ---
Operative Date/Time/Diagnoses Date of procedure: 09/22/20 Time of procedure: 09:03 Pre-op diagnosis: Right distal femur fracture supracondylar periprosthetic Post-op diagnosis: same Procedure & Clinicians Procedure: Close reduction and application of a long-leg cast Same procedure as scheduled: Yes Indications: This is a 75-year-old female who has a known history of rheumatoid arthritis see history of bilateral total knee arthroplasty and a prior right total hip arthroplasty. She fell and sustained a supracondylar distal femur fracture. She is brought the operating room for examination with fluoroscopy and probable closed reduction and casting. Surgeon: Xin Lopez [employer] Internship: Valerie Cotto Anesthesia Type: General Operative Notes Findings: Valgus deformity of the right distal femur, no evidence of prosthetic loosening Closure Type: primary Specimen(s): none sent Applied: cast(s) (Long leg cast) Blood products transfused: none Procedure in detail: Patient is brought to the operating room she underwent induction of the anesthesia. Her fluoroscopy was brought in her fracture was meticulously checked with the C-arm. There was a lateral femoral condyle compression fracture. There did not appear to be evidence of loosening of the femoral component. The fracture was meticulously reduced and acceptable alignment of the knee was achieved. Reduction was confirmed with fluoroscopy. Patient was placed in a long-leg cast. She tolerated the procedure well. The cast was meticulously padded due to her compromised rheumatoid skin. She did have callus formation on the plantar aspect of her foot but no gross open wounds. Complications: none Post-operative Condition: stable Disposition: Acute Care Plan for aftercare: 50 lb max weight-bearing right lower extremity, transfer training bed to chair. 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 She probably will require short-term stay at a rehab in order to adequately mobil ize. Return to clinic in 1-2 weeks after discharge for x-rays in plaster AP and lateral of the femur assessing alignment of the knee.
--- NOTE | 2020-09-22 10:43 | SUR.PHASEI ---
Pt transferred to acute care floor in stable condition, vss. pt alert with eyes open and responding to verbal stimuli during transport. Bedside report given to MARY Clark upon arrival to room. Transferred care of pt to MARY Clark at that time, vss.
--- NOTE | 2020-09-22 10:50 | PT-IP ANOTE ---
900 am checked on pt and pt not in her room. Pt is having surgery today for closed reduction of R knee fracture. Checked on pt again and still not back from surgery 1001 am. checked back on pt at 1039 am and nurse stated that pt just got back and nurse is doing her assessment. pt wanted to rest and agreed to do PT in the afternoon.
--- NOTE | 2020-09-22 11:26 | CM.DPC ---
Addendum entered by Reyna Heard R.N. 09/22/20 14:46: Sent referral to [facility] as well, and left a message. Recent note indicated that they were accepting patients later in the week. Called [facility] as well and left a message. So far, referrals are in to [facility], [facility], and [facility]. Original Note: DCP Cont: Dr. Lopez came in with update for care management. Stated that due to extensive surgery, as well as medical history, as well as that has dialysis, that detention will be in patient's best interest. Stated that patient could be ready for discharge tomorrow, or Thursday if needed. Let Dr. Lopez know that this family caseworker would discuss with patient, as far as availabilities. Updated Dr. Lopez that there are certain facilities that are not currently accepting patients secondary to COVID. Spoke to patient in her room. She was laying in bed, she just had surgery. She is in agreement about going to detention facility. Let patient know that there are only certain facilities accepting patient at this time. Went ahead and provided her a Medicare Choice List. Patient [place] [facility], and stated, it would be nice to be close to home. Patient stated, go ahead and send referrals to facilities of acceptance. Called [facility] Stated that there is no one in admissions this weekend, and most likely can't accept patients until Thursday. Called [facility]. April in admissions is not in the office, but [facility] is covering, and stated, they could possibly take patient on Thursday, but not over the week-end. Went ahead and gave her patient's name, and faxed over information. Called [facility], spoke to one of the nurses, Carmen. Stated, they may have availabilities. Went ahead and also faxed over referral. She gave a fax number of: [phone]. Will follow up in the am. Sent face sheet, P.T. notes, history and physical, as well as today's operative report. P: DCP to continue to follow. Referrals have been sent to [facility], and [facility]. Will follow up with [facility] to see if they can potentially take tomorrow, if needed. Reyna Heard RN/Airport Operations Coordinator
--- NOTE | 2020-09-22 11:35 | PM.PN.1 ---
Subjective Subjective Date Patient Seen: 09/22/20 Time Patient Seen: 11:35 Interval history: Tessa Segal is a 75-year-old female with a past medical history significant for hypertension, aortic stenosis status post TAVR and rheumatoid arthritis on Enbrel who presented to the ED via EMS following a mechanical ground level fall and knee pain. She was found to have a distal R femur fracture and went to the OR today for a closed reduction and application of a long cast. She denies headache, sore throat, cough, shortness of breath, chest pain, abdominal pain, nausea, vomiting, fever, chills, dysuria, diarrhea or constipation. She just returned from the OR and received a dose of morphine for pain relief. Will resume PT The patient is resting in bedside chair comfortably. She has mild right mild knee discomfort that is controlled with pain medications. She is disappointed that she has a significant fracture of distal right femur but happy to hear the ortho team is planning to fix it surgically. She is voiding and eliminating without difficulty. She is up ambulating minimally with walker and assistance with no weight bearing on right lower extremity Exam Vital Signs (past 8 hours): - 09/22/20 04:45 09/22/20 05:01 09/22/20 07:47 Temperature 98.1 F Pulse Rate 70 72 Respiratory Rate 12 16 Blood Pressure 131/60 Pulse Oximetry 96 96 93 09/22/20 08:00 09/22/20 08:26 09/22/20 08:39 Temperature 97.1 F L 98.5 F 97.1 F L Pulse Rate 74 72 74 Respiratory Rate 17 19 17 Blood Pressure 156/77 H 171/72 H 156/77 H Pulse Oximetry 96 97 96 09/22/20 09:57 09/22/20 10:02 09/22/20 10:07 Temperature 99.3 F Pulse Rate 80 73 66 Respiratory Rate 8 L 9 L 9 L Blood Pressure 98/35 L 117/73 135/61 Pulse Oximetry 67 L 100 100 09/22/20 10:12 09/22/20 10:17 09/22/20 10:22 Temperature 97.7 F Pulse Rate 66 66 68 Respiratory Rate 14 11 L 10 L Blood Pressure 138/68 145/59 H 156/60 H Pulse Oximetry 93 99 97 09/22/20 10:25 09/22/20 10:35 Temperature 97.5 F L Pulse Rate 68 96 H Respiratory Rate 11 L 16 Blood Pressure 140/51 L 171/74 H Pulse Oximetry 94 97 Fraction of Inspired Oxygen 21 Oxygen Delivery Method Room Air Oxygen Flow Rate 2 Narrative Exam Narrative: General: Elderly female sitting in bedside chair and in no acute distress, well-developed, well-nourished, appropriately interactive. HEENT: Normocephalic, atraumatic. External ears without defect. Pupils equal, round, and reactive to light. Anicteric sclerae, moist conjunctivae, and no lid lag. Oropharynx free of erythema and cobble stoning with moist mucosa. Neck: Supple with full range of motion. No jugular venous distension. No lymphadenopathy or thyromegaly. Cardiovascular: Regular rate and rhythm with soft grade 2-3/6 holosystolic murmur LSB. No rubs or gallops appreciated. Pulmonary: Clear to auscultation bilaterally without crackles, wheezes, or rhonchi. Normal respiratory effort with no use of accessory muscles. Abdomen: Soft, bowel sounds present, nontender, nondistended. No hepatosplenomegaly or masses appreciated. Extremities: No clubbing, cyanosis, or edema. Rheumatoid arthritis of hands and feet. Right leg with long cast. Skin: Normal temperature, turgor, and texture; no rash, ulcers, or subcutaneous nodules appreciated. Neurological: Cranial nerves grossly intact. Psychiatric: Normal mood and affect. Alert and oriented to person, place, and time. Objective Labs Result Diagrams: 09/22/20 05:50 09/22/20 05:50 Labs: Laboratory Results - last 24 hr 09/21/20 09/22/20 09/22/20 21:00 05:50 05:50 WBC 5.9 RBC 3.63 L Hgb 10.7 L Hct 32.2 L MCV 88.7 MCH 29.5 MCHC 33.3 RDW 14.0 Plt Count 84 L Neut % (Auto) 60.7 Lymph % (Auto) 19.0 L Haines % (Auto) 14.0 Eos % (Auto) 5.1 H Baso % (Auto) 1.2 Neut # (Auto) 3600 Lymph # (Auto) 1100 Haines # (Auto) 800 Eos # (Auto) 300 Baso # (Auto) 100 PT 13.1 H INR 1.1 Sodium Potassium Chloride Carbon Dioxide BUN Creatinine Estimated GFR BUN/Creatinine Ratio Glucose Calcium Magnesium Total Bilirubin AST ALT Alkaline Phosphatase Total Protein Albumin Globulin Albumin/Globulin Ratio Procalcitonin Urine Color Yellow Urine Appearance Clear Urine pH 6.5 Ur Specific [place] 1.020 Urine Protein Negative Urine Glucose (UA) Negative Urine Ketones Trace H Urine Occult Blood Negative Urine Nitrate Positive H Urine Bilirubin Negative Urine Urobilinogen 0.2 Ur Leukocyte Esterase Negative Urine RBC 0-1/hpf Urine WBC 10-30/hpf H Ur Squamous Epith Cells 1-5 /hpf Ur Transition Epith Cell 5-10/hpf H Urine Bacteria Moderate (10-30) H Ur Culture Indicated? Specimen cultured 09/22/20 09/22/20 05:50 05:50 WBC RBC Hgb Hct MCV MCH MCHC RDW Plt Count Neut % (Auto) Lymph % (Auto) Haines % (Auto) Eos % (Auto) Baso % (Auto) Neut # (Auto) Lymph # (Auto) Haines # (Auto) Eos # (Auto) Baso # (Auto) PT INR Sodium 132 L Potassium 3.3 L Chloride 102 Carbon Dioxide 30 BUN 16 Creatinine 0.73 Estimated GFR > 60.0 BUN/Creatinine Ratio 21.9 Glucose 102 Calcium 8.5 Magnesium 1.5 L Total Bilirubin 1.6 H AST 28 ALT 11 Alkaline Phosphatase 59 Total Protein 6.3 Albumin 3.2 L Globulin 3.1 Albumin/Globulin Ratio 1.0 Procalcitonin < 0.05 Urine Color Urine Appearance Urine pH Ur Specific [place] Urine Protein Urine Glucose (UA) Urine Ketones Urine Occult Blood Urine Nitrate Urine Bilirubin Urine Urobilinogen Ur Leukocyte Esterase Urine RBC Urine WBC Ur Squamous Epith Cells Ur Transition Epith Cell Urine Bacteria Ur Culture Indicated? [facility] Medical History Aortic stenosis Hypertension Rheumatoid arthritis Surgical History History of cholecystectomy History of foot surgery History of knee replacement History of right hip replacement History of transcatheter aortic valve replacement (TAVR) Family History Father No significant medical problems Mother Hypertension Diverticulosis Social History household members: spouse Smoking Status: Former smoker alcohol intake: current Assessment & Plan Assessment & Plan narrative: Tessa Segal is a 75-year-old female with a past medical history significant for hypertension, aortic stenosis status post TAVR and rheumatoid arthritis on Enbrel who is admitted after a closed fracture of her distal femur requiring orthopedic closed reduction and application of a long cast in the operating room. 1. Closed fracture of lateral distal femoral metaphysis, status post right total knee arthroplasty, acute, present on admission, active. -Patient sustained a periprosthetic distal femur fracture and was nonambulatory and nonweightbearing on right lower extremity per Orthopedics after admission until she went to the operating room. -CT right lower extremity without contrast demonstrated mildly impacted fracture at the lateral aspect of the distal femoral metaphysis with mild valgus angulation and status post right total knee arthroplasty with moderate lipohemarthrosis. -Consulted orthopedic surgery, Dr. Lopez, who performed closed reduction and application of a long cast in the OR today. -Continue acetaminophen 975 mg every 8 hours, tramadol 50-100 mg every 6 hours as needed for moderate pain, oxycodone 5 mg every 4 hours as needed for moderate to severe pain, and morphine 2 mg IV every 4 hours as needed for severe breakthrough pain. -Continue physcial and occupational therapy evaluation and treatment. 2. Rheumatoid arthritis, chronic, present on admission. Stable. -patient with joint deformities bilateral hands with decreased range of motion of wrists ankles and feet. -she is status post bilateral total knee arthroplasty, right total hip arthroplasty and previous wrist injury -the patient does not routinely use assistive devices at home. -continue PT/OT 3. Hypertension, chronic, present on admission. Stable. -patient with elevated blood pressure 171/74 upon arrival to the ER likely elevated secondary to pain rated as an 8/10 upon arrival, improved to 140/54 upon admission to the inpatient unit. -patient takes telmisartan 80 mg/hydrochlorothiazide 25 mg daily. Ordered telmisartan 80 mg daily will hold hydrochlorothiazide due to hyponatremia and hypokalemia. -will trend blood pressures and assess as it remains elevated likely due to pain. 4. Hypokalemia, acute, present on admission. Active. -patient is on diuretic therapy with hydrochlorothiazide 25 mg. Potassium is 3.3 on admission labs and stable today despite repletion. Mg low at 1.5 which was repleted as well. 5. Hyponatremia, unknown if acute or chronic, present on admission, stable -sodium level on admission labs is 133. Patient presents with clear mentation. -patient is mildly dehydrated in appearance with dry mucous membranes, BUN creatinine ratio is 18.8. -patient has been on telmisartan/hydrochlorothiazide. Will treat conservatively and hold hydrochlorothiazide and encourage p.o. fluids. 6. Aortic stenosis, status post TAVR, chronic, present on admission. Stable. -No complaints of chest pain or dyspnea. -Previous echocardiogram 09/2017 demonstrated an EF of 60-65% prior to TAVR procedure. -Patient is followed by cardiology outpatient. 7.hypomagnesemia, acute - repleted with 2g IV today. 8. thrombocytopenia, present on admission, unknown if acute or chronic. - only prior lab result from 2017 with Plt count of 180. Admission value 94 slightly down to 84 today. Will continue to monitor for signs of bleeding. okay to continue VTE at this time. Code status: Full code, the patient designates her to be surrogate decision maker VTE prophylaxis: Enoxaparin Disposition: Anticipate possible discharge to rehab for continued therapy after fixation depending on how she does with PT. Possible discharge to SNF tomorrow. COVID-19 COVID-19 status: Negative Quality VTE Deep Vein Thrombosis/Pulmonary Embolism Present on Admission: No
--- NOTE | 2020-09-22 11:47 | OT.IP.TRT ---
Surgery Performed Operation Date: 09/22/20 09:00 Actual Procedures p Closed Reduction AND CASTING RIGHT LEG,EXAM UNDER ANESTHESIA(Right) - Xin Lopez MD Occupational Therapy Treatment Note Document 09/22/20 11:46 CGR (Rec: 09/22/20 11:47 CGR [id number]) OT- Subjective Occupational Therapy Visit Type Type Administrative Note Notes Attempted to see pt for OT services. PT just returned from sx and placement of full cast. Pt and nursing requesting therapy hold at this time. Will hold and continue to follow.
--- NOTE | 2020-09-22 13:45 | PT.IPRE ---
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, initial encounter (09/20/20) Surgery Performed Operation Date: 09/22/20 09:00 Actual Procedures p Closed Reduction AND CASTING RIGHT LEG,EXAM UNDER ANESTHESIA(Right) - Xin Lopez MD Surgical History (Last Reviewed 09/22/20 @ 11:48 by Vargas Galicia DO) History of cholecystectomy History of foot surgery History of knee replacement History of right hip replacement History of transcatheter aortic valve replacement (TAVR) Medical History (Last Reviewed 09/22/20 @ 11:48 by Vargas Galicia DO) Aortic stenosis Hypertension Rheumatoid arthritis Physical Therapy Inpatient Evaluation/Re-Eval M1 PT/OT-IP Prior Functional Status Start: 09/21/20 12:01 Freq: NEEDED Status: Active Protocol: Document 09/21/20 12:01 CGR (Rec: 09/21/20 12:30 CGR [id number]) Medical Review Prior Functional Status Medical History Reviewed Yes Communication Pt is an effective verbal communicator. Mobility and Gait Pt was IND to mod I with a walker as needed. Activities of Daily Living and IADL's Pt was IND for ADLs except that her helped to don her socks and shoes. Prior Functional Level (Other details) Pt's lives with her but is not able to physically assist with more than basic ADLs. Social History Household Members spouse Living Arrangements House Number of Floors (Floors) One Floor Number of Stairs To Enter/Railing? 2 steps to enter. Pt states first step is large. Home Environment Standard Height Toilet,Walk in Shower Home Equipment Front Wheel Walker,Four Wheel Walker,Raised Toilet Seat w/ Armrests,Shower Seat without Backrest Employment Status Retired Additional Social History Comment Pt states she has the above equipment but was not currently using it. M1 PT/OT-IP Prior Functional Status Start: 09/21/20 14:01 Freq: NEEDED Status: Active Protocol: Document 09/21/20 11:00 AB (Rec: 09/21/20 14:23 AB [id number]) Medical Review Prior Functional Status Medical History Reviewed Yes Communication able to make needs known Mobility and Gait pt stated that she is independent with all mobilities and ambulation without AD. stated that spouse assists her with stair climbing. Activities of Daily Living and IADL's Pt was IND for ADLs except that her helped to don her socks and shoes Prior Functional Level (Other details) Pt's lives with her but is not able to physically assist with more than basic ADLs. Social History Household Members spouse Living Arrangements House Number of Floors (Floors) One Floor Number of Stairs To Enter/Railing? 2 platform steps to enter Home Environment Standard Height Toilet,Walk in Shower Home Equipment Front Wheel Walker,Four Wheel Walker Employment Status Retired Additional Social History Comment pt stated that she has a shower chair and RTS in her storage M2 PT-IP Current Condition Start: 09/21/20 14:01 Freq: NEEDED Status: Active Protocol: Document 09/22/20 13:45 AB (Rec: 09/22/20 14:41 [email or web address]) Physical Therapy Current Condition Current Condition Evaluation Date 09/22/20 Treatment Diagnosis R knee periprosthetic fx s/p clsd reduct/applic long leg cast; diff walking Onset Date 09/20/20 Precautions Brace RLE in a long leg cast Weight Bearing Status Weight Bearing Status Partial Weight Bearing Allowed Weight Bearing Amount (enter % RLE 50# max weight bearing or #) (%) M3 PT-IP Subjective Start: 09/21/20 14:01 Freq: NEEDED Status: Active Protocol: Document 09/22/20 13:45 AB (Rec: 09/22/20 14:41 [email or web address]) Subjective Physical Therapy Visit Type Type Re-Evaluation Visit Start Time 13:45 Visit Stop Time 14:10 Total Visit Minutes 25 Number of CERTIFIED PESTICIDE APPLICATOR Visits 0 Physical Therapy Visit Comments Patient Comments pt is agreeable to do PT Therapy Pain Assessment Pain When Pain Assessed At Rest Pain Present Pain Present Pain Reported Location Right Knee Intensity 4 Scale Used Numeric (0 - 10) Pain Management Techniques Distraction,Modification of Treatment,Re-positioning, Timing of Activity with Medications M4 PT-IP Mobility and Gait Start: 09/21/20 14:01 Freq: NEEDED Status: Active Protocol: Document 09/22/20 13:45 AB (Rec: 09/22/20 14:41 [email or web address]) PT-Bed Mobility Assessment Supine to Sit Supine to Sit Maximum Assistance,2 Person Assistance Scooting Scooting to Edge of Bed Maximum Assistance PT-Transfer Assessment Sit to and From Stand Sit to and from Stand Maximum Assistance,1 Person Assistance,Use of Upper Extremities Equipment Transfer Assistive Device Gait Belt,Front Wheeled Walker Orthotic/Prosthetic Devices or Brace: No Transfers Transfer Destination Chair Transfer Technique Stand Pivot Transfer Ability Level of Assist Moderate Assistance,1 Person Assistance,Use of Upper Extremities Comments Mobility Comments informed pt regarding weight bearing restriction. completed supine to sit max A x 2 and max cues with increase posterior trunk lean and cues to lean forward. c/o long leg cast pushing on her abdomen during sitting. assisted to EOB max A x 2 and max cues and repositioned pt. completed sit tos tand max A and max cues and completed pivot transfer using fWW mod A and cues. pt opted to do NWB on RLE and was able to maintain with cues. required max A for controlled descent to chair and max cues to keep RLE forward and NWB. positioned pt on chair max A x 2 and cues. call light and table placed within reach. PT-Balance Assessment Sitting Balance and Reactions Static Sitting Balance Ability Fair Dynamic Sitting Balance Ability Poor Standing Balance and Reactions Static Standing Balance Ability Fair Dynamic Standing Balance Ability Poor Device Used FWW M5 PT-IP Objective Assessments Start: 09/21/20 14:01 Freq: NEEDED Status: Active Protocol: Document 09/22/20 13:45 AB (Rec: 09/22/20 14:41 AB [id number]) Orientation Orientation/Cognition Level of Alertness Alert Orientation Name,Place,Situation Safety Awareness Understands Safety Issues Gross Range of Motion Lower Extremity ROM Impairments R knee/ankle not tested: in a long leg cast Strength Lower Extremity Strength Assessment Right Impaired Hip 3-/5 Muscle Tone Muscle Tone WNL Yes M6 PT-IP Treatment Start: 09/21/20 14:01 Freq: NEEDED Status: Active Protocol: Document 09/22/20 13:45 AB (Rec: 09/22/20 14:41 AB [id number]) Physical Therapy Treatment Education Education Provided Weight Bearing Status,Safety M7 PT-IP Assessment and Plan Start: 09/21/20 14:01 Freq: NEEDED Status: Active Protocol: Document 09/22/20 13:45 AB (Rec: 09/22/20 14:41 AB [email or web address]) PT Summary Assessment and Plan Potential Rehabilitation Potential Good Summary Impairments Pain,ROM,Strength,Balance, Coordination,Sensation,Tone, Cognition,Bed Mobility, Transfers,Gait,Activity Tolerance Assessment Summary Pt with R knee periprosthetic fracture and PT eval completed yesterday with orders of NWB RLE. pt underwent RLE closed reduction with application of long leg cast this morning with weight bearing restriction of 50# max on RLE. PT re-eval completed. pt required max A x 2 with bed mobility and max A for transfers using FWW. pt will require SNF rehab to improve strength and mobility. Pt lives with her spouse but spouse will not be able to assist pt due to his own medical issues. Goals Bed Mobility Goal Standby Assistance Transfer Goal Contact Guard Assistance,Front Wheeled Walker Gait Goal Contact Guard Assistance,Front Wheel Walker Gait Distance 25 Days to Meet Goals 10 Frequency of Treatment Frequency Of Treatment Twice a Day Treatment Plan Physical Therapy Treatment Plan Bed Mobility Training,Transfer Training,Gait Training, Therapeutic Exercise,Balance Retraining,Discharge Planning, Hot or Cold Pack,Neuromuscular Re-ed,Coordination Retraining Other Recommendations and Next Treatment transfers, standing bal/augustus Focus Recommendations To Nursing Amount of Assist Needed 2 Person Assist Discharge Recommendations PT Discharge Recommendations SNF Rehab Transportation Needs at Discharge Wheelchair/Cabulance
[2020-09-22] MEDS: MAGNESIUM SULFATE 2 GM/50 ML PIGGYBACK IV (13:49)
--- NOTE | 2020-09-22 15:24 | CM.DPC ---
DCP Cont: Sent a referral to [facility] as well, indicating that patient will be ready by Thursday. Attempted to get back to [facility], caregiver answered, and went to find a nurse, but kept this order planner on hold for a while. Initial contact was nurse, Carmen. Will attempt to call again in the am. P: DCP to continue to follow. Referrals sent to [facility]o, [facility], and [facility]. Will follow up with [facility] tomorrow to see if they can accept tomorrow. Reyna Heard RN/Real Estate Investment Analyst
[2020-09-22] MEDS: ACETAMINOPHEN 325 MG TABLET 975 MG PO ×2 (15:51→20:53)
[2020-09-22] MEDS: SODIUM CHLORIDE 0.9% FLUSH 10 ML IV ×3 (16:35→21:35)
[2020-09-22] MEDS: CEFTRIAXONE 1 GM/50 ML FROZ.PIGGY IV (17:34)
[2020-09-22] MEDS: PHENAZOPYRIDINE 100 MG TABLET PO ×2 (17:34→21:34)
--- NOTE | 2020-09-22 18:37 | PC.NURSE ---
Pt presented at beginning of shift with mild pain controlled w/ current medication regime. Post-op today w/ closed reduction R knee. Cast applied from toes to hip. Circulation and sensation present in all four limbs. Movement limited in BLE d/t presence of cast and arthritis, and limited in hands d/t arthritis. No cardiovascular or respiratory distress, lung sounds CBT, AOx4, limited ROM in R leg. NWB R leg, 2x assist. Frequency, urgency, and low output still present, consulted w/ provider to add IV abx w/ AZO for urinary tract relief.
[2020-09-22] MEDS: ASPIRIN EC 81 MG TABLET PO (20:53)
[2020-09-22] MEDS: carvediloL 3.125 MG TABLET 6.25 MG PO (20:54)
[2020-09-23] VITALS (8 sets, daily range): BP systolic 135–185; BP diastolic 61–72; PULSE 61–72; RESP 15–17; TEMP 36.3–37.2; O2SAT 91–95
[2020-09-23 06:00] LABS: Hematocrit 32.3 % (36-46); Hemoglobin 10.6 g/dL (12.0-16.0); Mean Corpuscular HGB Conc 32.7 % (30-36); Mean Corpuscular Hemoglobin 29.1 PG (26-34); Mean Corpuscular Volume 88.9 fL (80-100); Platelet Count 84 X10^3/uL (150-400); Red Blood Cell Count 3.63 X10^6/uL (4.0-5.2); Red Cell Distribution Width 14.1 % (11.6-14.8); White Blood Cell Count 7.4 X10^3/uL (4.5-11.0)
[2020-09-23 06:05] LABS: BUN Creatinine Ratio 16.4 (6-22); Blood Urea Nitrogen 11 mg/dL (7-17); Calcium 8.4 mg/dL (8.4-10.2); Carbon Dioxide 29 mmol/L (22-32); Chloride 104 mmol/L (98-107); Estimated Glomerular Filt Rate > 60.0 mL/min (>60); Glucose 103 mg/dL (80-110); HEMOLYSIS < 15 (0-50); Magnesium 1.9 mg/dL (1.6-2.3); Potassium 3.7 mmol/L (3.4-5.1); Sodium 134 mmol/L (137-145)
--- NOTE | 2020-09-23 06:54 | PC.NURSE ---
Pt c/o pain in right leg from cast. Upon inspection, the proximal part of the cast on the posterior side is digging into the patient's upper thigh/buttock and looks like it may soon cause excoriation or ulcer. The patient is not mobile and is at risk for skin breakdown. Teresa, Coordinator, assessed the cast and skin condition and agrees it poses a problem. I tried to tuck in an absorption pad but there is no room to tuck it into the cast to prevent the edges of the cast from digging into her skin. Leg elevated on two pillows for now. Recommendation to Orthopedic surgeon: Trim proximal, posterior part of cast
[2020-09-23] MEDS: TELMISARTAN 40 MG TABLET 80 MG PO (08:45)
[2020-09-23] MEDS: carvediloL 3.125 MG TABLET 6.25 MG PO ×2 (08:45→21:12)
[2020-09-23] MEDS: DOCUSATE 100 MG CAPSULE PO (08:45)
[2020-09-23] MEDS: ASPIRIN EC 81 MG TABLET PO ×2 (08:45→21:12)
[2020-09-23] MEDS: ACETAMINOPHEN 325 MG TABLET 975 MG PO ×3 (08:45→21:12)
[2020-09-23] MEDS: polyethylene glycoL 3350 17 GM POWD.PACK PO (08:46)
[2020-09-23] MEDS: PHENAZOPYRIDINE 100 MG TABLET PO ×3 (08:46→21:12)
[2020-09-23] MEDS: SODIUM CHLORIDE 0.9% FLUSH 10 ML IV ×3 (08:46→21:26)
--- NOTE | 2020-09-23 10:19 | CM.DPC ---
Addendum entered by AYANNA Coelho 09/23/20 11:30: ADD: Return call from [facility], they can accept pt when stable for d/c starting tomorrow Thursday. KIRILL faxed requested updated RN notes and med list to review. KIRILL requested RN to complete updated COVID 19 test sometime today in anticipation of discharge tomorrow.f BF Original Note: DCP Cont SNF planning: Pt in need of SNF rehab at d/c prior to safe return home and previous DCP sent 3 SNF referrals yesterday and completed PASRR. [facility]: no weekend admissions but will review and likely not able to accept until pending review. [facility]: no openings this weekend for new admissions but will review to see if they could accept Thu. KIRILL called today, Maya, and they requested referral to be faxed again as they don't see previous faxed referral. SW faxed again and they will review today. [facility]: [facility] called to confirm if they can accept and they request referral be faxed again and KIRILL faxed packet and [facility] confirmed they received and sending to their DNS now towards likely acceptance for tomorrow Thursday but request call back early Thu to confirm as they do not have an admission person today Thursday. New COVID will be needed as by tomorrow pt will be out of the 72 hour window. Plan: KIRILL to follow closely with Kim and [facility] to determine if either can accept for Thursday. New COVID needed tomorrow morning. AYANNA Coelho
--- NOTE | 2020-09-23 10:31 | PM.PN.1 ---
Subjective Subjective Date Patient Seen: 09/23/20 Time Patient Seen: 10:31 Interval history: She notes she is doing well she has minimal pain except she has a little bit uncomfortable at the top of her calf along the posterior aspect of her leg. She was able to get up with max assist to a chair yesterday. Exam Vital Signs (past 8 hours): - 09/23/20 03:44 09/23/20 08:00 09/23/20 08:45 Temperature 98.4 F 98.9 F Pulse Rate 68 69 61 Respiratory Rate 16 16 Blood Pressure 156/68 H 185/71 H 185/71 H Pulse Oximetry 94 92 Fraction of Inspired Oxygen 21 Oxygen Delivery Method Room Air Oxygen Flow Rate 0 Narrative Exam Narrative: She is alert she is oriented she is able to move her toes up and down. There is adequate room in the superior aspect of her cast specially anteriorly, she cannot do a straight leg raise Objective Labs Result Diagrams: 09/23/20 05:45 09/23/20 05:45 Labs: Laboratory Results - last 24 hr 09/23/20 09/23/20 05:45 05:45 WBC 7.4 RBC 3.63 L Hgb 10.6 L Hct 32.3 L MCV 88.9 MCH 29.1 MCHC 32.7 RDW 14.1 Plt Count 84 L Sodium 134 L Potassium 3.7 Chloride 104 Carbon Dioxide 29 BUN 11 Creatinine 0.67 Estimated GFR > 60.0 BUN/Creatinine Ratio 16.4 Glucose 103 Calcium 8.4 Magnesium 1.9 PFSH Medical History Aortic stenosis Hypertension Rheumatoid arthritis Surgical History History of cholecystectomy History of foot surgery History of knee replacement History of right hip replacement History of transcatheter aortic valve replacement (TAVR) Family History Father No significant medical problems Mother Hypertension Diverticulosis Social History household members: spouse Smoking Status: Former smoker alcohol intake: current Assessment & Plan Assessment & Plan narrative: Stable status closed reduction of right femur fracture with with supracondylar periprosthetic fracture plan continue to mobilize out of bed with physical therapy anticipate that she will require rehab services. She has multiple crippling problems due to her rheumatoid arthritis and likely will need additional therapy. Okay to discharge to rehab when a bed is available. Quality VTE Deep Vein Thrombosis/Pulmonary Embolism Present on Admission: No
--- NOTE | 2020-09-23 11:47 | PT-IP ANOTE ---
Check in on pt and pt was eating lunch. Will check back with pt this afternoon.
[2020-09-23 12:13] LABS: COVID19 -Nasal RAPID Negative (Negative)
--- NOTE | 2020-09-23 12:23 | PC.NURSE ---
Addendum entered by Ev Peña R.N. 09/23/20 13:33: Was not able to get the ABD padding into the cast, in all positions the cast was too tight in the back to add the padding. Original Note: Patient is still having frequent urination and is using bed beckham. No complaints of burning. Patient has 4-5/10 pain that is being managed w/ scheduled Tylenol. Patient having pain from where cast is digging in to back of her leg. Dr. Lopez aware. When patient get's up w/ PT we will but ABD pads inside to cushion the leg from the cast. VSS, Lungs sounds Dim posterior throughout.
--- NOTE | 2020-09-23 13:59 | PT.IPTN ---
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, initial encounter (09/20/20) Surgery Performed Operation Date: 09/22/20 09:00 Actual Procedures p Closed Reduction AND CASTING RIGHT LEG,EXAM UNDER ANESTHESIA(Right) - Xin Lopez MD Physical Therapy Treatment Note M2 PT-IP Current Condition Start: 09/21/20 14:01 Freq: NEEDED Status: Active Protocol: Document 09/22/20 13:45 AB (Rec: 09/22/20 14:41 AB [id number]) Physical Therapy Current Condition Current Condition Evaluation Date 09/22/20 Treatment Diagnosis R knee periprosthetic fx s/p clsd reduct/applic long leg cast; diff walking Onset Date 09/20/20 Precautions Brace RLE in a long leg cast Weight Bearing Status Weight Bearing Status Partial Weight Bearing Allowed Weight Bearing Amount (enter % RLE 50# max weight bearing or #) (%) M3 PT-IP Subjective Start: 09/21/20 14:01 Freq: NEEDED Status: Active Protocol: Document 09/23/20 13:16 CLB (Rec: 09/23/20 14:31 CLB [email or web address]) Subjective Physical Therapy Visit Type Type Treatment Note Visit Start Time 13:16 Visit Stop Time 13:59 Total Visit Minutes 43 Number of FITTING ROOM ATTENDANT Visits 1 Physical Therapy Visit Comments Patient Comments Pt needed to use BSC. Therapy Pain Assessment Pain When Pain Assessed At Rest Pain Present Pain Present Pain Reported Location Right Knee Scale Used pain scale not stated M4 PT-IP Mobility and Gait Start: 09/21/20 14:01 Freq: NEEDED Status: Active Protocol: Document 09/23/20 13:16 CLB (Rec: 09/23/20 14:31 CLB [id number]) PT-Bed Mobility Assessment Supine to Sit Supine to Sit Maximum Assistance,1 Person Assistance,Head of Bed Elevated Scooting Scooting to Edge of Bed Maximum Assistance PT-Transfer Assessment Sit to and From Stand Sit to and from Stand Minimal Assistance,1 Person Assistance,Use of Upper Extremities Equipment Transfer Assistive Device Gait Belt,Front Wheeled Walker Orthotic/Prosthetic Devices or Brace: No Transfers Transfer Destination Chair,Bedside Commode Transfer Technique Stand Pivot Transfer Ability Level of Assist Minimal Assistance,1 Person Assistance,Use of Upper Extremities Comments Mobility Comments Pt in bed upon arrival needing to use BSC. Pt required Max A x1 for supine to sit with HOB elevated and Max A with draw sheet to scoot to EOB with second person supporting RLE. Pt very fearful of falling and required max cues for sequencing scooting and not to lean back while scooting, pt would reach out and grab therapist and would need redirected to push with hands on bed. Once pt was close to EOB and LLE was on floor pt was able to stand with Min A. Pt required Min A for stand pivot to left to [facility] with cues to reach back for hand placement on chair. Pt then stood from [facility] Min A and SBA while OT asssited with pericare, pt then transfered with stand pivot to chair with max cues for sequencing walker. Pt sat Min A in chair. Pt left in chair with OT present. Gait Assessment Comments Gait Comments unable at this time M5 PT-IP Objective Assessments Start: 09/21/20 14:01 Freq: NEEDED Status: Active Protocol: Document 09/22/20 13:45 AB (Rec: 09/22/20 14:41 AB [id number]) Orientation Orientation/Cognition Level of Alertness Alert Orientation Name,Place,Situation Safety Awareness Understands Safety Issues Gross Range of Motion Lower Extremity ROM Impairments R knee/ankle not tested: in a long leg cast Strength Lower Extremity Strength Assessment Right Impaired Hip 3-/5 Muscle Tone Muscle Tone WNL Yes M6 PT-IP Treatment Start: 09/21/20 14:01 Freq: NEEDED Status: Active Protocol: Document 09/22/20 13:45 AB (Rec: 09/22/20 14:41 AB [id number]) Physical Therapy Treatment Education Education Provided Weight Bearing Status,Safety M7 PT-IP Assessment and Plan Start: 09/21/20 14:01 Freq: NEEDED Status: Active Protocol: Document 09/23/20 13:16 CLB (Rec: 09/23/20 14:31 CLB [id number]) PT Summary Assessment and Plan Potential Rehabilitation Potential Good Summary Impairments Pain,ROM,Strength,Balance, Coordination,Sensation,Tone, Cognition,Bed Mobility, Transfers,Gait,Activity Tolerance Assessment Summary Pt is requiring Max A for bed mobility and scooting to EOB and Min A for sit-stand and transfer. Pt is very fearful of falling and reaches out for therapist during bed mobility and scooting. Pt with pain in posterior thigh due to cast with redness, RN was unable to pad area due to lack of room in cast. Pt lives with her spouse but spouse will not be able to assist pt due to his own medical issues. Pt will benefit from SNF rehab to increase activity tolerance and strength for increased functional mobility. Goals Bed Mobility Goal Standby Assistance Transfer Goal Contact Guard Assistance,Front Wheeled Walker Gait Goal Contact Guard Assistance,Front Wheel Walker Gait Distance 25 Days to Meet Goals 10 Frequency of Treatment Frequency Of Treatment Twice a Day Treatment Plan Physical Therapy Treatment Plan Bed Mobility Training,Transfer Training,Gait Training, Therapeutic Exercise,Balance Retraining,Discharge Planning, Hot or Cold Pack,Neuromuscular Re-ed,Coordination Retraining Other Recommendations and Next Treatment transfers, standing bal/aug[place] Focus Recommendations To Nursing Amount of Assist Needed 2 Person Assist Discharge Recommendations PT Discharge Recommendations SNF Rehab Transportation Needs at Discharge Wheelchair/Cabulance
--- NOTE | 2020-09-23 14:33 | P.PN_ITS ---
Subjective Subjective Date Patient Seen: 09/23/20 Time Patient Seen: 14:33 Interval history: Tessa Segal is a 75-year-old female with a past medical history significant for hypertension, aortic stenosis status post TAVR and rheumatoid arthritis on Enbrel who presented to the ED via EMS following a mechanical ground level fall and knee pain. She was found to have a distal R femur fracture and went to the OR 09/22 for a closed reduction and application of a long cast. She denies headache, sore throat, cough, shortness of breath, chest pain, abdominal pain, nausea, vomiting, fever, chills, dysuria, diarrhea or constipation. PT has recommended SNF. Exam Vital Signs (past 8 hours): - 09/23/20 08:00 09/23/20 08:45 09/23/20 11:00 Temperature 98.9 F 97.9 F Pulse Rate 69 61 69 Respiratory Rate 16 15 Blood Pressure 185/71 H 185/71 H 154/62 H Pulse Oximetry 92 91 Fraction of Inspired Oxygen 21 Oxygen Delivery Method Room Air Oxygen Flow Rate 0 Narrative Exam Narrative: General: Elderly female sitting in bedside chair and in no acute distress, well-developed, well-nourished, appropriately interactive. HEENT: Normocephalic, atraumatic. External ears without defect. Pupils equal, round, and reactive to light. Anicteric sclerae, moist conjunctivae, and no lid lag. Oropharynx free of erythema and cobble stoning with moist mucosa. Neck: Supple with full range of motion. No jugular venous distension. No lymphadenopathy or thyromegaly. Cardiovascular: Regular rate and rhythm with soft grade 2-3/6 holosystolic murmur LSB. No rubs or gallops appreciated. Pulmonary: Clear to auscultation bilaterally without crackles, wheezes, or rhonchi. Normal respiratory effort with no use of accessory muscles. Abdomen: Soft, bowel sounds present, nontender, nondistended. No hepatosplenomegaly or masses appreciated. Extremities: No clubbing, cyanosis, or edema. Rheumatoid arthritis of hands and feet. Right leg with long cast. Skin: Normal temperature, turgor, and texture; no rash, ulcers, or subcutaneous nodules appreciated. Neurological: Cranial nerves grossly intact. Psychiatric: Normal mood and affect. Alert and oriented to person, place, and time. Objective Labs Result Diagrams: 09/23/20 05:45 09/23/20 05:45 Labs: Laboratory Results - last 24 hr 09/23/20 09/23/20 09/23/20 05:45 05:45 11:54 WBC 7.4 RBC 3.63 L Hgb 10.6 L Hct 32.3 L MCV 88.9 MCH 29.1 MCHC 32.7 RDW 14.1 Plt Count 84 L Sodium 134 L Potassium 3.7 Chloride 104 Carbon Dioxide 29 BUN 11 Creatinine 0.67 Estimated GFR > 60.0 BUN/Creatinine Ratio 16.4 Glucose 103 Calcium 8.4 Magnesium 1.9 COVID-19 PCR Negative PFSH Medical History Aortic stenosis Hypertension Rheumatoid arthritis Surgical History History of cholecystectomy History of foot surgery History of knee replacement History of right hip replacement History of transcatheter aortic valve replacement (TAVR) Family History Father No significant medical problems Mother Hypertension Diverticulosis Social History household members: spouse Smoking Status: Former smoker alcohol intake: current Assessment & Plan Assessment & Plan narrative: Tessa Segal is a 75-year-old female with a past medical history significant for hypertension, aortic stenosis status post TAVR and rheumatoid arthritis on Enbrel who is admitted after a closed fracture of her distal femur requiring orthopedic closed reduction and application of a long cast in the operating room. 1. Closed fracture of lateral distal femoral metaphysis, status post right total knee arthroplasty, acute, present on admission, active. -Patient sustained a periprosthetic distal femur fracture and was nonambulatory and nonweightbearing on right lower extremity per Orthopedics after admission until she went to the operating room. -CT right lower extremity without contrast demonstrated mildly impacted fracture at the lateral aspect of the distal femoral metaphysis with mild valgus angulation and status post right total knee arthroplasty with moderate lipohemarthrosis. -Consulted orthopedic surgery, Dr. Lopez, who performed closed reduction and application of a long cast in the OR 09/22/20 -Continue acetaminophen 975 mg every 8 hours, tramadol 50-100 mg every 6 hours as needed for moderate pain, oxycodone 5 mg every 4 hours as needed for moderate to severe pain, and morphine 2 mg IV every 4 hours as needed for severe breakthrough pain. -Continue physcial and occupational therapy evaluation and treatment. 2. Rheumatoid arthritis, chronic, present on admission. Stable. -patient with joint deformities bilateral hands with decreased range of motion of wrists ankles and feet. -she is status post bilateral total knee arthroplasty, right total hip arthroplasty and previous wrist injury -the patient does not routinely use assistive devices at home. -continue PT/OT 3. Hypertension, chronic, present on admission. Stable. -patient with elevated blood pressure 171/74 upon arrival to the ER likely elevated secondary to pain rated as an 8/10 upon arrival, improved to 140/54 upon admission to the inpatient unit. -patient takes telmisartan 80 mg/hydrochlorothiazide 25 mg daily. Ordered telmisartan 80 mg daily will hold hydrochlorothiazide due to hyponatremia and hypokalemia. -will trend blood pressures and assess as it remains elevated likely due to pain. 4. Hypokalemia, acute, present on admission. Active. -patient is on diuretic therapy with hydrochlorothiazide 25 mg. Potassium is 3.3 on admission labs and stable today despite repletion. Mg low at 1.5 which was repleted as well. 5. Hyponatremia, unknown if acute or chronic, present on admission, stable -sodium level on admission labs is 133. Patient presents with clear mentation. -patient is mildly dehydrated in appearance with dry mucous membranes, BUN cr eatinine ratio is 18.8. -patient has been on telmisartan/hydrochlorothiazide. Will treat conservatively and hold hydrochlorothiazide and encourage p.o. fluids. 6. Aortic stenosis, status post TAVR, chronic, present on admission. Stable. -No complaints of chest pain or dyspnea. -Previous echocardiogram 09/2017 demonstrated an EF of 60-65% prior to TAVR procedure. -Patient is followed by cardiology outpatient. 7.hypomagnesemia, acute - repleted with 2g IV now 1.9. Will continue to monitor. 8. thrombocytopenia, present on admission, unknown if acute or chronic. - only prior lab result from 2017 with Plt count of 180. Admission value 94 slightly down to 84 but stable. Will continue to monitor for signs of bleeding. okay to continue VTE at this time. Code status: Full code, the patient designates her to be surrogate decision maker VTE prophylaxis: Enoxaparin Disposition: Anticipate discharge to skilled rehab for continued therapy after casting depending on how she does with PT. Possible discharge to SNF tomorrow. COVID-19 COVID-19 status: Negative Quality VTE Deep Vein Thrombosis/Pulmonary Embolism Present on Admission: No
--- NOTE | 2020-09-23 15:46 | OT.IPRE ---
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, initial encounter (09/20/20) Surgery Performed Operation Date: 09/22/20 09:00 Actual Procedures p Closed Reduction AND CASTING RIGHT LEG,EXAM UNDER ANESTHESIA(Right) - Xin Lopez MD Past Medical History (Last Reviewed 09/23/20 @ 14:36 by Vargas Galicia DO) Aortic stenosis Hypertension Rheumatoid arthritis Surgical History (Last Reviewed 09/23/20 @ 14:36 by Vargas Galicia DO) History of cholecystectomy History of foot surgery History of knee replacement History of right hip replacement History of transcatheter aortic valve replacement (TAVR) Occupational Therapy Inpatient Evaluation/Re-Eval M1 PT/OT-IP Prior Functional Status Start: 09/21/20 14:01 Freq: NEEDED Status: Active Protocol: Document 09/23/20 15:27 RM (Rec: 09/23/20 15:46 RM [id number]) Medical Review Prior Functional Status Medical History Reviewed Yes Communication Pt is an effective verbal communicator. Mobility and Gait Pt was IND to mod I with a walker as needed. Activities of Daily Living and IADL's Pt was IND for ADLs except that her helped to don her socks and shoes. Prior Functional Level (Other details) Pt's lives with her but is not able to physically assist with more than basic ADLs. Social History Household Members spouse Living Arrangements House Number of Floors (Floors) One Floor Number of Stairs To Enter/Railing? 2 steps to enter. Pt states first step is large. Additional Social History Comment Patient reports plan to discharge to SNF for ongoing rehab prior to discharge home. M2 OT-IP Current Condition Start: 09/21/20 12:01 Freq: Status: Active Protocol: Document 09/23/20 15:27 RM (Rec: 09/23/20 15:46 RM [id number]) Occupational Therapy Current Condition Current Condition Evaluation Date 09/23/20 Treatment Diagnosis R distal femur fx s/p closed reducation and casting Diagnosis Onset Date 09/22/20 Weight Bearing Status Weight Bearing Status Partial Weight Bearing Allowed Weight Bearing Amount (enter % 50# max weight bearing RLE or #) (%) M3 OT- IP Subjective and Pain Start: 09/21/20 12:01 Freq: Status: Active Protocol: Document 09/23/20 15:27 RM (Rec: 09/23/20 15:46 RM [id number]) OT- Subjective Occupational Therapy Visit Type Type Re-Evaluation Visit Start Time 13:20 Visit Stop Time 14:05 Total Visit Minutes 45 Occupational Therapy Visit Comments Patient Comments I am afraid I'm going to fall . Patient/Caregiver Goals Discharge to SNF for ongoing rehab prior to returning home with her . OT Pain Assessment Pain When Pain Assessed During Mobility Pain Present Pain Present Pain Reported Location Right Knee Scale Used Sanchez-Freeman (Faces) Pain Behaviors Guarding,Moaning,Wincing Management Techniques Modification of Treatment,Re- positioning M4 OT- IP ADL's Start: 09/21/20 12:01 Freq: Status: Active Protocol: Document 09/23/20 15:27 RM (Rec: 09/23/20 15:46 RM [id number]) OT ADL-Grooming General Evaluation Grooming Ability Standby Assistance Areas Needing Assistance Retrieving/Set-up of Grooming Items Devices Grooming Assistive Devices Adapted Comb/[place] Comments OT Grooming Comments Patient able to wash hands w/ no rinse soap and wash cloth and comb hair with long handled comb after s/u in recliner. OT ADL-Oral Care Comments Oral Care Comments Patient reports completing oral care in AM w/ nursing providing s/u assist. OT ADL-Toileting General Evaluation Toileting Ability Maximum Assistance Areas Needing Assistance Empty Catheter or Colostomy, Manage Clothing,Perform Perineal Hygiene Devices Toileting Assistive Devices Commode Comments OT Toileting Comments Patient able to initiate perineal hygiene with LUE with cues for positioning to improve reach, but unable to complete fully requiring assist. Also requires assist to empty commode and adjust clothing. Nursing also reports frequent urination and using bedpan d/t decreased mobility and unable to get up to BSC as often as she is needing to urinate d/t pain, decreased strength, and activity tolerance. OT ADL-Bathing Comments OT Bathing Comments Patient reports nursing staff providing assist for sponge bath this AM. M5 OT- IP IADL's Start: 09/21/20 12:01 Freq: Status: Active Protocol: Document 09/23/20 15:27 RM (Rec: 09/23/20 15:46 RM [id number]) OT-Instrumental Activities of Daily Living Deficits IADL Deficits Identified Deficits Home Safety Awareness Awareness of Need for Assistance at Home Good Awareness M6 OT- IP Functional Cognition Start: 09/21/20 12:01 Freq: Status: Active Protocol: Document 09/23/20 15:27 RM (Rec: 09/23/20 15:46 RM [id number]) Cognitive Factors Limiting Selfcare Function Cognitive Ability Level of Alertness Alert Attention Span Ability Capable of Focused Attention, Capable of Sustained Attention Ability to Follow Commands Able to Follow One Step Commands with Repetition Memory Description Short Term Impaired Problem Solving Ability Needs Assist to Identify Solutions Cognitive Comments Cognitive Assessment Comments Patient requires cues to problem solve body mechanics for bed mobility and cues for safety with transfers using FWW including proper hand placement with transitions from sit<>stand. OT- Vision and Hearing OT- Hearing Assessment OT- Hearing Assessment WFL OT- Vision Assessment Visual Acuity WFL M7 OT- IP Mobility and Balance Start: 09/21/20 12: Freq: Status: Active Protocol: Document 09/23/20 15:27 RM (Rec: 09/23/20 15:46 RM [id number]) OT- Bed Mobility Assessment Rolling Type of Rolling Roll to Right Level of Assistance Maximum Assistance Supine to Sit Supine to Sit Assist Maximum Assistance Scooting Scooting to Edge of Bed Maximum Assistance,2 Person Assistance OT-Transfer Assessment Sit to and From Stand Sit to and from Stand Maximum Assistance,1 Person Assistance Transfers Transfer Ability Minimal Assistance,1 Person Assistance Technique Transfer Destination Bedside Commode,Chair Transfer Technique Stand Step Pivot Devices Transfer Assistive Devices Bed Rail,Front Wheeled Walker Orthotic/Prosthetic Devices or Brace: Yes Comments Mobility Comments RLE cast in place. Noted pressure at upper rim of cast along posterior aspect of her thigh. Nursing aware and attempted to provide additional padding, however, lacking adequate room to provide additional padding. Redness noted with nursing aware and working to address. M8 OT- IP Objective Assessments Start: 09/21/20 12:01 Freq: Status: Active Protocol: Document 09/23/20 15:27 RM (Rec: 09/23/20 15:46 RM [id number]) OT Strength Upper Extremity Strength Assessment Bilaterally Impaired Comments Strength Comments Patient with decreased strength d/t joint deformity and weakness associated with her RA. M9 OT- IP Assessment and Plan Start: 09/21/20 12:01 Freq: Status: Active Protocol: Document 09/23/20 15:27 RM (Rec: 09/23/20 15:46 RM [id number]) OT Summary Assessment and Plan Potential Rehabilitation Potential Good Analytic Complexity at Evaluation Moderate Summary OT Impairments Pain,Range of Motion,Strength, Balance,Functional Cognition, Functional Mobility,Dressing, Toileting,Bathing,Toilet Transfers,Shower Transfers, Activity Tolerance Progress Towards Goals Progressing Toward Goals Assessment Summary Patient is a 75 year old female seen today for re- evaluation following closed reduction and casting of her R femur fracture. She remains limited by pain and decreased strength. She is also quite fearful of falling and requires cues for safety with mobility including correct use of FWW. She also continues to have significant ADL deficits . WB status to max 50# on RLE with cast in place. Currently concerns for skin irritation to posterior thigh with nursing aware and working to address. Goals Dressing Goal Minimal Assistance,Dressing Stick,Long Handled Shoe Horn, [employer] Teacher Toileting Goal Standby Assistance Bathing Goal Minimal Assistance Toilet Transfer Goal Standby Assistance Shower Transfer Goal Standby Assistance Frequency of Treatment Frequency Of Treatment Once a Day Treatment Plan OT Treatment Plan ADL Training,Functional Cognition Training,Functional Mobility,Neuromuscular Re- education,Therapeutic Exercises,Patient/Family Education,Discharge Planning Other Treatment Recommendations and Next Address ADL performance Treatment Focus including ADL transfers for toileting in BR. Discharge Recommendations OT Discharge Recommendations SNF Rehab Home Equipment Needs Defer to SNF setting. Transportation Needs at Discharge Wheelchair/Cabulance
[2020-09-23] MEDS: CEFTRIAXONE 1 GM/50 ML FROZ.PIGGY IV (18:23)
--- NOTE | 2020-09-23 22:49 | PC.NURSE ---
Pt began shift with VSS, no cardiovascular or respiratory distress, Neuro checks +CS on R toes, mvmt limited both legs. Cast at top of thigh cutting into buttox. MD aware, requested to have pt lie on stomach and apply moleskin & gauze between cast and flesh. Unable to place gauze, small 1 wide x 6 long strip of moleskin applied barely successfully with pt leaning forward on raised bed. Pt unable to lie on stomach and would scream in pain when leg moved and moleskin applied. Frequency and urgency still apparent for urination, but pain reduced. Loose BM, bowel medications refused for the night. CPAP at night.
[2020-09-24 05:59] LABS: BUN Creatinine Ratio 21.1 (6-22); Blood Urea Nitrogen 12 mg/dL (7-17); Calcium 8.5 mg/dL (8.4-10.2); Carbon Dioxide 28 mmol/L (22-32); Chloride 106 mmol/L (98-107); Estimated Glomerular Filt Rate > 60.0 mL/min (>60); Glucose 101 mg/dL (80-110); HEMOLYSIS < 15 (0-50); Magnesium 1.7 mg/dL (1.6-2.3); Potassium 3.8 mmol/L (3.4-5.1); Sodium 135 mmol/L (137-145)
[2020-09-24 06:00] VITALS: BP 102/76; PULSE 80; RESP 16; TEMP 36.1; O2SAT 94
[2020-09-24 07:50] VITALS: BP 184/81; PULSE 75; RESP 16; TEMP 36.4; O2SAT 95
[2020-09-24 07:51] VITALS: PULSE 80; RESP 18; O2SAT 97
--- NOTE | 2020-09-24 08:18 | PM.DS.1 ---
History of Present Illness History of Present Illness Date Patient Seen: 09/24/20 Time Patient Seen: 08:18 Chief complaint: Fall Narrative: As per VALE Medina: Ms. Tessa Segal is a 75-year-old female with a past medical history significant for hypertension, aortic stenosis status post TAVR and rheumatoid arthritis who presents to the ER via EMS following a mechanical ground level fall and knee pain. Patient reports tripping on a step and landing on her right knee. She was nonambulatory following the fall and sustained no loss consciousness, no head neck or back injury. Patient has had previous bilateral total knee arthroplasty and right total hip arthroplasty. She reports impaired joint mobility in her hands and ankles related to advanced rheumatoid arthritis. The patient denies recent cold or flu symptoms and has had no known COVID-19 exposures. She denies chest pain or palpitations, shortness of breath cough or wheezing. She denies epigastric or abdominal pain and has no nausea or vomiting. She denies changes in bowel or bladder habits. Upon arrival to the ER the patient's temperature 98.1?, heart rate of 70, blood pressure 171/74, respirations 16 saturating 98% on room air. X-ray of the right knee finds suspected mildly angulated fracture at the lateral aspect of the distal femoral metaphysis, moderate lipohemarthrosis. CT of the right knee reveals mildly impacted fracture at the lateral aspect of the distal femoral metaphysis with mild valgus angulation, status post right total knee arthroplasty and moderate lipohemarthrosis. Dr. Rod, orthopedics, was called through the ED. Was felt though that this is a periprosthetic fracture emergent surgery is not indicated and recommended outpatient follow-up. The patient was found to be unable to support her weight on either crutches or a walker due to her advanced rheumatoid arthritis and nonweightbearing status. Her home environment includes steps at the entry in the patient is deemed unsafe to discharge to home environment due to her level of disability. The patient will be admitted as to the medicine service for periprosthetic fracture of the right knee, pain management and PT and OT evaluation. BMP is ordered finding a sodium of 133, potassium of 3.3, carbon dioxide 33 with a BUN of 15 and creatinine 0.80. Nonfasting glucose is 117. Discharge Providers Provider Date of admission: 09/20/20 22:05 Discharge Date: 09/24/20 Primary care physician: VALE Gomez Consults: 09/20/20 22:11 Consult to Occupational Therapy Evaluate & Treat Comment: Periprosthetic fracture right knee, NWB Physician Instructions: Evaluate and treat Consult to Physical Therapy Evaluate & Treat Comment: Periprosthetic fracture right knee, NWB Physician Instructions: Evaluate and Treat 09/20/20 23:57 Consult to Orthopedic Surgery Routine Comment: Consulting Provider: Xin Lopez Reason for consultation: Periprosthetic fracture right lateral distal femur Has provider been notified: Yes 09/21/20 02:34 Consult to Respiratory Therapy Evaluate & Treat Comment: Physician Instructions: Evaluate and treat 09/22/20 08:37 Consult to Respiratory Therapy Evaluate & Treat Comment: Physician Instructions: Evaluate and treat 09/22/20 11:14 Consult to Discharge Planning Routine Comment: Consult to Physical Therapy Evaluate & Treat Comment: 50 lbs max right lower extremity, transfer trainin Physician Instructions: Evaluate and Treat Consult to Respiratory Therapy Evaluate & Treat Comment: Physician Instructions: Evaluate and treat Discharge provider: Vargas Galicia DO Summary Hospital Course Discharge Diagnosis: Please see hospital course by problem list noted below Hospital Course: Tessa Segal is a 75-year-old female with a past medical history significant for hypertension, aortic stenosis status post TAVR and rheumatoid arthritis on Enbrel who was admitted after a closed fracture of her distal femur requiring orthopedic closed reduction and application of a long cast in the operating room. She is being discharged to [facility] for continued rehabilitation. 1. Closed fracture of lateral distal femoral metaphysis, status post right total knee arthroplasty, acute, present on admission, active. -Patient sustained a periprosthetic distal femur fracture and was nonambulatory and nonweightbearing on right lower extremity per Orthopedics after admission until she went to the operating room for closed reduction. -CT right lower extremity without contrast demonstrated mildly impacted fracture at the lateral aspect of the distal femoral metaphysis with mild valgus angulation and status post right total knee arthroplasty with moderate lipohemarthrosis. -Consulted orthopedic surgery, Dr. Lopez, who performed closed reduction and application of a long cast in the OR 09/22/20 -Continue acetaminophen 975 mg every 8 hours, tramadol 50-100 mg every 6 hours as needed for moderate pain, oxycodone 5 mg every 4 hours as needed for moderate to severe pain -Continue PT/OT at [facility] 2. Rheumatoid arthritis, chronic, present on admission. Stable. -patient with joint deformities bilateral hands with decreased range of motion of wrists ankles and feet. -she is status post bilateral total knee arthroplasty, right total hip arthroplasty and previous wrist injury -the patient does not routinely use assistive devices at home. -continue PT/OT at [facility] 3. Hypertension, chronic, present on admission. Stable. -patient with elevated blood pressure 171/74 upon arrival to the ER likely elevated secondary to pain rated as an 8/10 upon arrival, improved to 140/54 upon admission to the inpatient unit. -patient takes telmisartan 80 mg/hydrochlorothiazide 25 mg daily and coreg 12.5. Continued telmisartan 80 mg daily but held hydrochlorothiazide due to hyponatremia and hypokalemia on admission. Now low normal blood pressures on half home dose coreg and telmisartan. Can restart as needed for rising blood pressures. Would avoid HCTZ given hyponatremia on admission. 4. Hypokalemia, acute, present on admission. Active. -patient was on diuretic therapy with hydrochlorothiazide 25 mg. Potassium is 3.3 on admission labs and improved with Mg and potassium supplementation. Mg low at 1.5 on admission which was repleted as well. 5. Hyponatremia, unknown if acute or chronic, present on admission, stable -sodium level on admission labs is 133. Patient presents with clear mentation. -patient is mildly dehydrated in appearance with dry mucous membranes, BUN creatinine ratio is 18.8. -patient has been on telmisartan/hydrochlorothiazide. Have held HCTZ as noted above. 6. Aortic stenosis, status post TAVR, chronic, present on admission. Stable. -No complaints of chest pain or dyspnea. -Previous echocardiogram 09/2017 demonstrated an EF of 60-65% prior to TAVR procedure. -Patient is followed by cardiology outpatient. 7.hypomagnesemia, acute - repleted with 2g IV now improved. 8. thrombocytopenia, present on admission, unknown if acute or chronic. - only prior lab result from 2017 with Plt count of 180. Admission value 94 slightly down to 84 but stable. No signs of bleeding. If continued after surgery recommend further outpatient evaluation. Disposition: Discharge to [facility]. Time Spent with Patient Time spent: Greater than 30 minutes Exam Vital Signs (past 8 hours): - 09/24/20 06:00 09/24/20 07:51 Temperature 97.0 F L Pulse Rate 80 80 Respiratory Rate 16 18 Blood Pressure 102/76 Pulse Oximetry 94 97 Fraction of Inspired Oxygen 21 Oxygen Delivery Method Room Air Oxygen Flow Rate 0 Narrative Exam Narrative: General: Elderly female sitting in bedside chair and in no acute distress, well-developed, well-nourished, appropriately interactive. HEENT: Normocephalic, atraumatic. External ears without defect. Pupils equal, round, and reactive to light. Anicteric sclerae, moist conjunctivae, and no lid lag. Oropharynx free of erythema and cobble stoning with moist mucosa. Neck: Supple with full range of motion. No jugular venous distension. No lymphadenopathy or thyromegaly. Cardiovascular: Regular rate and rhythm with soft grade 2-3/6 holosystolic murmur LSB. No rubs or gallops appreciated. Pulmonary: Clear to auscultation bilaterally without crackles, wheezes, or rhonchi. Normal respiratory effort with no use of accessory muscles. Abdomen: Soft, bowel sounds present, nontender, nondistended. No hepatosplenomegaly or masses appreciated. Extremities: No clubbing, cyanosis, or edema. Rheumatoid arthritis of hands and feet. Right leg with long cast. Skin: Normal temperature, turgor, and texture; no rash, ulcers, or subcutaneous nodules appreciated. Neurological: Cranial nerves grossly intact. Psychiatric: Normal mood and affect. Alert and oriented to person, place, and time. Objective Labs Result Diagrams: 09/23/20 05:45 09/24/20 05:35 Labs: Laboratory Results - last 24 hr 09/23/20 09/24/20 11:54 05:35 Sodium 135 L Potassium 3.8 Chloride 106 Carbon Dioxide 28 BUN 12 Creatinine 0.57 Estimated GFR > 60.0 BUN/Creatinine Ratio 21.1 Glucose 101 Calcium 8.5 Magnesium 1.7 COVID-19 PCR Negative PFSH Medical History Aortic stenosis Hypertension Rheumatoid arthritis Surgical History History of cholecystectomy History of foot surgery History of knee replacement History of right hip replacement History of transcatheter aortic valve replacement (TAVR) Family History Father No significant medical problems Mother Hypertension Diverticulosis Social History household members: spouse Smoking Status: Former smoker alcohol intake: current Discharge Plan Discharge Plan Patient Disposition: SNF Provider Discharge Comment: Tessa Segal is a 75-year-old female with a past medical history significant for hypertension, aortic stenosis status post TAVR and rheumatoid arthritis on Enbrel who was admitted after a closed fracture of her distal femur requiring orthopedic closed reduction and application of a long cast in the operating room. She is being [facility] to [facility] for continued [facility]. 1. Closed fracture of lateral distal femoral metaphysis, status post right total knee arthroplasty, acute, present on admission, active. -Patient sustained a periprosthetic distal femur fracture and was nonambulatory and nonweightbearing on right lower extremity per Orthopedics after admission until she went to the operating room for closed reduction. -CT right lower extremity without contrast demonstrated mildly impacted fracture at the lateral aspect of the distal femoral metaphysis with mild valgus angulation and status post right total knee arthroplasty with moderate lipohemarthrosis. -Consulted orthopedic surgery, Dr. Lopez, who performed closed reduction and application of a long cast in the OR 09/22/20 -Continue acetaminophen 975 mg every 8 hours, tramadol 50-100 mg every 6 hours as needed for moderate pain, oxycodone 5 mg every 4 hours as needed for moderate to severe pain -Continue PT/OT at [facility] 2. Rheumatoid arthritis, chronic, present on admission. Stable. -patient with joint deformities bilateral hands with decreased range of motion of wrists ankles and feet. -she is status post bilateral total knee arthroplasty, right total hip arthroplasty and previous wrist injury -the patient does not routinely use assistive devices at home. -continue PT/OT at [facility] 3. Hypertension, chronic, present on admission. Stable. -patient with elevated blood pressure 171/74 upon arrival to the ER likely elevated secondary to pain rated as an 8/10 upon arrival, improved to 140/54 upon admission to the inpatient unit. -patient takes telmisartan 80 mg/hydrochlorothiazide 25 mg daily and coreg 12.5. Continued telmisartan 80 mg daily but held hydrochlorothiazide due to hyponatremia and hypokalemia on admission. Now low normal blood pressures on half home dose coreg and telmisartan. Can restart as needed for rising blood pressures. Would avoid HCTZ given hyponatremia on admission. 4. Hypokalemia, acute, present on admission. Active. -patient was on diuretic therapy with hydrochlorothiazide 25 mg. Potassium is 3.3 on admission labs and improved with Mg and potassium supplementation. Mg low at 1.5 on admission which was repleted as well. 5. Hyponatremia, unknown if acute or chronic, present on admission, stable -sodium level on admission labs is 133. Patient presents with clear mentation. -patient is mildly dehydrated in appearance with dry mucous membranes, BUN creatinine ratio is 18.8. -patient has been on telmisartan/hydrochlorothiazide. Have held HCTZ as noted above. 6. Aortic stenosis, status post TAVR, chronic, present on admission. Stable. -No complaints of chest pain or dyspnea. -Previous echocardiogram 09/2017 demonstrated an EF of 60-65% prior to TAVR procedure. -Patient is followed by cardiology outpatient. 7.hypomagnesemia, acute - repleted with 2g IV now improved. 8. thrombocytopenia, present on admission, unknown if acute or chronic. - only prior lab result from 2017 with Plt count of 180. Admission value 94 slightly down to 84 but stable. No signs of bleeding. If continued after surgery recommend further outpatient evaluation. Discharge orders & Medications Prescriptions: New telmisartan 80 mg tablet 80 mg PO DAILY 30 Days Qty: 30 RF: 0 acetaminophen 325 mg Tablet 975 mg PO TID 30 Days Qty: 270 RF: 0 aspirin 81 mg Tablet,Delayed Release (Dr/Ec) 81 mg PO BID 30 Days Qty: 60 RF: 0 carvedilol 6.25 mg tablet 6.25 mg PO BID 30 Days Qty: 60 RF: 0 polyethylene glycol 3350 17 gram Powder In Packet 17 gm PO DAILY 7 Days Qty: 7 RF: 0 hydrocodone-acetaminophen 5-325 mg Tablet 1 tab PO Q4HR PRN (Reason: Pain, Mild (1-3)) 7 Days Qty: 30 RF: 0 docusate sodium [DOK] 100 mg Capsule 100 mg PO BID 14 Days Qty: 28 RF: 0 ondansetron 4 mg Tablet,Disintegrating 4 mg PO Q4HR PRN (Reason: Nausea And Vomiting) 14 Days Qty: 30 RF: 0 tramadol 50 mg tablet 50 mg PO Q6H PRN (Reason: pain) 7 Days Qty: 28 RF: 0 Discontinued carvedilol [Coreg] 12.5 mg Tablet 12.5 mg PO BID RF: 0 telmisartan-hydrochlorothiazid [Micardis HCT] 80-25 mg Tablet 1 tab PO DAILY RF: 0 Follow up/Referrals: Dada Garrido ARNP [Primary Care Provider] - Kyaw Hillman MD [Physician] - Visit Report/Discharge Packet Instructions: How to Prevent Falls, How to Take Care of Your Splint Stand Alone Forms: Surgery Discharge Discharge Data Primary Care Provider: Dada Garrido Quality VTE Deep Vein Thrombosis/Pulmonary Embolism Present on Admission: No
[2020-09-24 08:38] VITALS: BP 184/81; PULSE 75
[2020-09-24] MEDS: PHENAZOPYRIDINE 100 MG TABLET PO (08:38)
[2020-09-24] MEDS: carvediloL 3.125 MG TABLET 6.25 MG PO (08:38)
[2020-09-24] MEDS: TELMISARTAN 40 MG TABLET 80 MG PO (08:38)
[2020-09-24] MEDS: ASPIRIN EC 81 MG TABLET PO (08:38)
[2020-09-24] MEDS: ACETAMINOPHEN 325 MG TABLET 975 MG PO (08:39)
[2020-09-24] MEDS: SODIUM CHLORIDE 0.9% FLUSH 10 ML IV (08:41)
--- NOTE | 2020-09-24 10:15 | P.PN_ITS ---
Subjective Subjective Date Patient Seen: 09/24/20 Time Patient Seen: 10:15 Interval history: Pain is mild to moderate. Denies fever or chills. No nausea vomiting. Biggest complaint is some irritation along the lateral and posterior cast proximally. States it feels like the cast is rubbing and pinching. Exam Vital Signs (past 8 hours): - 09/24/20 06:00 09/24/20 07:51 09/24/20 08:38 Temperature 97.0 F L Pulse Rate 80 80 75 Respiratory Rate 16 18 Blood Pressure 102/76 184/81 H Pulse Oximetry 94 97 Fraction of Inspired Oxygen 21 Oxygen Delivery Method Room Air Oxygen Flow Rate 0 Narrative Exam Narrative: 75-year-old female resting comfortably in bed in no apparent distress. Long leg cast is intact. The cast is irritating the skin both along the proximal lateral proximal posterior aspect. Toes are warm and dry. Able to wiggle her toes. Objective Labs Result Diagrams: 09/23/20 05:45 09/24/20 05:35 Labs: Laboratory Results - last 24 hr 09/23/20 09/24/20 11:54 05:35 Sodium 135 L Potassium 3.8 Chloride 106 Carbon Dioxide 28 BUN 12 Creatinine 0.57 Estimated GFR > 60.0 BUN/Creatinine Ratio 21.1 Glucose 101 Calcium 8.5 Magnesium 1.7 COVID-19 PCR Negative PFSH Medical History Aortic stenosis Hypertension Rheumatoid arthritis Surgical History History of cholecystectomy History of foot surgery History of knee replacement History of right hip replacement History of transcatheter aortic valve replacement (TAVR) Family History Father No significant medical problems Mother Hypertension Diverticulosis Social History household members: spouse Smoking Status: Former smoker alcohol intake: current Assessment & Plan Post-op Postoperative Procedures: Procedures Operation Date: 09/22/20 09:00 Actual Procedures Side Surgeon p Closed Reduction AND CASTING RIGHT LEG,EXAM UNDER ANESTHESIA Right Xin Lopez MD Right distal femur fracture supracondylar periprosthetic Stable status post Closed reduction and application of a long-leg cast The proximal lateral and posterior cast was trans approximately 1 cm. Mole skin was applied over the edge of the cast in this area. Bulky Low dressing padding was also applied over the lateral to posterior aspect of the cast edge between the cast and stockinette. Talked with the nurse about applying some barrier cream to the irritated skin. Patient instructed to alert the nurses if this continues to be problematic and will need to trim and pad the cast further. Plan for aftercare: 50 lb max weight-bearing right lower extremity, transfer training bed to chair. 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 She probably will require short-term stay at a rehab in order to adequately mobilize. Return to clinic in 1-2 weeks after discharge for x-rays in plaster AP and lateral of the femur assessing alignment of the knee. Discharge to residential facility when stable per hospitalist. Quality VTE Deep Vein Thrombosis/Pulmonary Embolism Present on Admission: No
--- NOTE | 2020-09-24 10:20 | CM.DPC ---
Addendum entered by Reyna Heard R.N. 09/24/20 11:01: April from [facility] called back and stated that she needs script for Tramadol. Placed note on Dr. Galicia's desk, let nurse Mary know, as well as Randi, nursing program director. Addendum entered by Reyna Heard R.N. 09/24/20 10:39: Updated patient on BLS transport, and that she could potentially receive a bill, as is uncertain if Medicare will cover cost of transportation. wan support specialist time is 12:30, April, at [facility] is aware. Updated white board at main nurses station, patient is updated of time, as well as nurse, Jigna. Will place form for BLS over in chart. April at [facility] still needs PASSR, will fax over, and DC summary. Original Note: DCP Cont: April at [facility] at [facility] can accept patient today. April had left a message. Updated patient that [facility] can accept, and patient is aware. She has updated COVID results. Med sheets signed, PASSR completed. Confirmed with nursing, and P.T., that patient is not safe to sit up in a wheel-chair for transport. Went ahead and filled out a BLS form, Camilo Jackson, PAC, was just in seeing patient and is aware of BLS transport. P:Will complete BLS form and will call April back at [facility] to confirm a time. Reyna Heard RN/Metal C[employer] Operator
--- NOTE | 2020-09-24 10:26 | PT.IPTN ---
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, initial encounter (09/20/20) Surgery Performed Operation Date: 09/22/20 09:00 Actual Procedures p Closed Reduction AND CASTING RIGHT LEG,EXAM UNDER ANESTHESIA(Right) - Xin Lopez MD Physical Therapy Treatment Note M2 PT-IP Current Condition Start: 09/21/20 14:01 Freq: NEEDED Status: Active Protocol: Document 09/22/20 13:45 AB (Rec: 09/22/20 14:41 AB [id number]) Physical Therapy Current Condition Current Condition Evaluation Date 09/22/20 Treatment Diagnosis R knee periprosthetic fx s/p clsd reduct/applic long leg cast; diff walking Onset Date 09/20/20 Precautions Brace RLE in a long leg cast Weight Bearing Status Weight Bearing Status Partial Weight Bearing Allowed Weight Bearing Amount (enter % RLE 50# max weight bearing or #) (%) M3 PT-IP Subjective Start: 09/21/20 14:01 Freq: NEEDED Status: Active Protocol: Document 09/24/20 10:10 (Rec: 09/24/20 12:31 [email or web address]) Subjective Physical Therapy Visit Type Type Treatment Note Visit Start Time 10:10 Visit Stop Time 10:26 Total Visit Minutes 16 Notes SUKHJINDER Vilchis led tx under direct supervision of Bushra SAUCEDA for the entire session. Number of PAYROLL OFFICER Visits 2 Physical Therapy Visit Comments Patient Comments Pt agreeable to do PT. Pt states she is less fearful to move around. Therapy Pain Assessment Pain When Pain Assessed At Rest Pain Present Pain Present Pain Reported Location Right Knee Intensity 0 Scale Used Numeric (0 - 10) M4 PT-IP Mobility and Gait Start: 09/21/20 14:01 Freq: NEEDED Status: Active Protocol: Document 09/24/20 10:10 (Rec: 09/24/20 12:31 [id number]) PT-Bed Mobility Assessment Supine to Sit Supine to Sit Standby Assistance,Head of Bed Elevated Scooting Scooting to Edge of Bed Standby Assistance PT-Transfer Assessment Sit to and From Stand Sit to and from Stand Contact Guard Assistance,1 Person Assistance,Use of Upper Extremities Equipment Transfer Assistive Device Gait Belt,Front Wheeled Walker Orthotic/Prosthetic Devices or Brace: No Transfers Transfer Destination Chair Transfer Technique Stand Step Pivot Transfer Ability Level of Assist Contact Guard Assistance,1 Person Assistance,Use of Upper Extremities Comments Mobility Comments Pt in bed upon arrival. Prior to tx PA cut down cast so that it fit pt more appropriately. With the HOB elevated pt did supine-sit SBA. Scooting to R EOB pt was SBA and did require extra time to complete task. Sit to stand CGA and use of UE to push off from bed to stand. PAYROLL OFFICER applied barrier cream in b/w pts skin and cast. Pt did stand step pivot to chair CGA w/ FWW. Pt struggled to picker tender RLE, stating that her leg felt like a rock. Stand-sit in chair CGA w/ cues for hand placement on armrests when lowering to chair. Pt stated she was feeling less fearful about moving around. Left pt w / call light, warm blankets and all needs within reach. Gait Assessment Comments Gait Comments unable at this time M5 PT-IP Objective Assessments Start: 09/21/20 14:01 Freq: NEEDED Status: Active Protocol: Document 09/22/20 13:45 AB (Rec: 09/22/20 14:41 AB [id number]) Orientation Orientation/Cognition Level of Alertness Alert Orientation Name,Place,Situation Safety Awareness Understands Safety Issues Gross Range of Motion Lower Extremity ROM Impairments R knee/ankle not tested: in a long leg cast Strength Lower Extremity Strength Assessment Right Impaired Hip 3-/5 Muscle Tone Muscle Tone WNL Yes M6 PT-IP Treatment Start: 09/21/20 14:01 Freq: NEEDED Status: Active Protocol: Document 09/22/20 13:45 AB (Rec: 09/22/20 14:41 AB [id number]) Physical Therapy Treatment Education Education Provided Weight Bearing Status,Safety M7 PT-IP Assessment and Plan Start: 09/21/20 14:01 Freq: NEEDED Status: Active Protocol: Document 09/24/20 10:10 (Rec: 09/24/20 12:31 [id number]) PT Summary Assessment and Plan Potential Rehabilitation Potential Good Summary Impairments Pain,ROM,Strength,Balance, Coordination,Sensation,Tone, Cognition,Bed Mobility, Transfers,Gait,Activity Tolerance Assessment Summary Pt mobility has improved since previous tx. Pt is SBA for bed mobility and CGA for transfer w/ FWW. PA was able to cut down cast and this did improve her mobility. Pt does live with her spouse, but he is unable to assist her d/t his own medical issues. Plan is to dc pt today to SNF to help increase her mobiltiy, and strength. Goals Bed Mobility Goal Standby Assistance Transfer Goal Contact Guard Assistance,Front Wheeled Walker Gait Goal Contact Guard Assistance,Front Wheel Walker Gait Distance 25 Days to Meet Goals 10 Frequency of Treatment Frequency Of Treatment Twice a Day Treatment Plan Physical Therapy Treatment Plan Bed Mobility Training,Transfer Training,Gait Training, Therapeutic Exercise,Balance Retraining,Discharge Planning, Hot or Cold Pack,Neuromuscular Re-ed,Coordination Retraining Recommendations To Nursing Amount of Assist Needed 2 Person Assist Discharge Recommendations PT Discharge Recommendations SNF Rehab Transportation Needs at Discharge Wheelchair/Cabulance
--- NOTE | 2020-09-24 10:48 | OT.IP.TRT ---
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, initial encounter (09/20/20) Surgery Performed Operation Date: 09/22/20 09:00 Actual Procedures p Closed Reduction AND CASTING RIGHT LEG,EXAM UNDER ANESTHESIA(Right) - Xin Lopez MD Occupational Therapy Treatment Note M2 OT-IP Current Condition Start: 09/21/20 12:01 Freq: Status: Active Protocol: Document 09/23/20 15:27 RM (Rec: 09/23/20 15:46 RM [id number]) Occupational Therapy Current Condition Current Condition Evaluation Date 09/23/20 Treatment Diagnosis R distal femur fx s/p closed reducation and casting Diagnosis Onset Date 09/22/20 Weight Bearing Status Weight Bearing Status Partial Weight Bearing Allowed Weight Bearing Amount (enter % 50# max weight bearing RLE or #) (%) M3 OT- IP Subjective and Pain Start: 09/21/20 12:01 Freq: Status: Active Protocol: Document 09/24/20 11:05 [facility] (Rec: 09/24/20 11:17 [facility] [id number]) OT- Subjective Occupational Therapy Visit Type Type Treatment Note Visit Start Time 10:32 Visit Stop Time 10:48 Total Visit Minutes 16 Occupational Therapy Visit Comments Patient Comments Pt wanting to use the BSC. Nursing aid in to assist. Patient/Caregiver Goals Discharge to SNF for ongoing rehab prior to returning home with her . OT Pain Assessment Pain When Pain Assessed During Mobility Pain Present Pain Present Pain Reported M4 OT- IP ADL's Start: 09/21/20 12:01 Freq: Status: Active Protocol: Document 09/24/20 11:05 [facility] (Rec: 09/24/20 11:17 [facility] [id number]) OT ADL-Grooming General Evaluation Grooming Ability Standby Assistance Areas Needing Assistance Retrieving/Set-up of Grooming Items Devices Grooming Assistive Devices Adapted Comb/[place] OT ADL-Dressing General Eval Lower Body Dressing Ability Total Assistance Areas Needing Assistance Socks OT ADL-Toileting General Evaluation Toileting Ability Maximum Assistance Areas Needing Assistance Manage Clothing,Perform Perineal Hygiene Comments OT Toileting Comments MAX A X1 to stand versus MODA X 2 to stand and then able to stand with therapist MIN/MODA X 1 with FWW so nursing aid able to manage brief and hygiene needs. OT ADL-Bathing Comments OT Bathing Comments Not performed. M5 OT- IP IADL's Start: 09/21/20 12:01 Freq: Status: Active Protocol: Document 09/23/20 15:27 RM (Rec: 09/23/20 15:46 RM [id number]) OT-Instrumental Activities of Daily Living Deficits IADL Deficits Identified Deficits Home Safety Awareness Awareness of Need for Assistance at Home Good Awareness M6 OT- IP Functional Cognition Start: 09/21/20 12:01 Freq: Status: Active Protocol: Document 09/24/20 11:05 [facility] (Rec: 09/24/20 11:17 [facility] [id number]) Cognitive Factors Limiting Selfcare Function Cognitive Ability Level of Alertness Alert Attention Span Ability Capable of Focused Attention, Capable of Sustained Attention Ability to Follow Commands Able to Follow One Step Commands with Repetition Problem Solving Ability Needs Assist to Identify Solutions Cognitive Comments Cognitive Assessment Comments Pt needing reassurance for safety of hand placement and to be sure to follow 50# weight bearing for RLE. M7 OT- IP Mobility and Balance Start: 09/21/20 12:01 Freq: Status: Active Protocol: Document 09/24/20 11:05 [facility] (Rec: 09/24/20 11:17 [facility] [id number]) OT-Transfer Assessment Sit to and From Stand Sit to and from Stand Moderate Assistance,2 Person Assistance Transfers Transfer Ability Maximum Assistance,1 Person Assistance Technique Transfer Destination Bedside Commode,Chair Transfer Technique Stand Step Pivot Devices Transfer Assistive Devices Gait Belt,Front Wheeled Walker Comments Mobility Comments ModA x2 to max a X1 to stand to FWW vc to follow 50# weight bearing status. VC when standing to favor her left leg and heavily use her arms on the FWW to help unweight her right leg. OT- Balance Assessment Sitting Balance and Reactions Static Sitting Balance Ability Good Dynamic Sitting Balance Ability Fair Standing Balance and Reactions Static Standing Balance Ability Poor M8 OT- IP Objective Assessments Start: 09/21/20 12:01 Freq: Status: Active Protocol: Document 09/23/20 15:27 RM (Rec: 09/23/20 15:46 RM [id number]) OT Strength Upper Extremity Strength Assessment Bilaterally Impaired Comments Strength Comments Patient with decreased strength d/t joint deformity and weakness associated with her RA. M9 OT- IP Assessment and Plan Start: 09/21/20 12:01 Freq: Status: Active Protocol: Document 09/24/20 11:05 [facility] (Rec: 09/24/20 11:17 [facility] [id number]) OT Summary Assessment and Plan Potential Rehabilitation Potential Good Analytic Complexity at Evaluation Moderate Summary OT Impairments Pain,Balance,Functional Cognition,Functional Mobility, Dressing,Toileting,Bathing, Toilet Transfers,Shower Transfers,Activity Tolerance Progress Towards Goals Progressing Toward Goals Goals Days to Meet Goals 15 Frequency of Treatment Frequency Of Treatment Once a Day Treatment Plan OT Treatment Plan ADL Training,Functional Cognition Training,Functional Mobility,Neuromuscular Re- education,Therapeutic Exercises,Patient/Family Education,Discharge Planning Other Treatment Recommendations and Next Go over LB dressing equipment. Treatment Focus Discharge Recommendations OT Discharge Recommendations SNF Rehab Home Equipment Needs Defer to SNF setting. Transportation Needs at Discharge Wheelchair/Cabulance
--- NOTE | 2020-09-24 10:56 | CM.DPNOTE ---
Faxed DC summary to [facility] on 09/24/20 per Karie. Nayeli Calvin CM Asst.
[2020-09-24 12:10] VITALS: BP 158/75; PULSE 71; RESP 16; TEMP 36.6; O2SAT 94
--- NOTE | 2020-09-24 12:35 | PC.NURSE ---
Day shift: Pt left unit via BLS at approx 1240. BLS has SNF packet. Report given to Brooke at [facility] of [place]. Cast trimmed this AM by ERNESTO Jackson and Pt has worked w/ PT and she said it is much better now. Applied barrier cream to abrasion below rt bottom per ERNESTO Jackson. Pt tolerated transfer to S stretcher well.
== END 2020-09-24 12:39 | DRG 560 ==
LOC: ED 22:03 → AC 09-21 09:33
PROVIDERS: Internal Medicine; Orthopaedic Surgery; Admitting Provider Nurse Practitioner Adult Health; Emergency Provider Emergency Medicine; Family Provider Nurse Practitioner; PCP Nurse Practitioner; Referring Provider Emergency Medicine; Visit Provider Nurse Practitioner Adult Health
PROC: 0QSBXZZ Reposition Right Lower Femur, External Approach (ICD-10-PCS; principal; 2020-09-22 09:00)
DX: M97.11XA Periprosthetic fracture around internal prosthetic right knee joint, initial encounter (principal); S72.491A Other fracture of lower end of right femur, initial encounter for closed fracture; E87.1 Hypo-osmolality and hyponatremia; N30.00 Acute cystitis without hematuria; D69.6 Thrombocytopenia, unspecified; E87.6 Hypokalemia; E83.42 Hypomagnesemia; M06.9 Rheumatoid arthritis, unspecified; I10 Essential (primary) hypertension; Z95.2 Presence of prosthetic heart valve; W18.30XA Fall on same level, unspecified, initial encounter; Z11.59 Encounter for screening for other viral diseases; Z87.891 Personal history of nicotine dependence
CPT/HCPCS: 36415; 73562; 73564; 73700; 76000; 80048; 80053; 81001; 83735; 84145; 85025; 85027; 85610; 87077; 87086; 87186; 87635; 94660; 96372; 97162; 97166; 97530; 97535; 99283; 99284; J0330; J1650; J2270; J2405; J2704; J3480